=== PATIENT | male | born 1930 | race Hispanic/Latino ===

== ENCOUNTER 2017-03-18 14:52 | Inpatient (IN) | payer MEDICARE, OTHER ==
[2017-03-18] MEDS ORDERED: Sodium Chloride 0.9% 1,000 ML IV STA ×4 (15:15→18:54)
[2017-03-18 15:40] LABS: VENOUS BLOOD GAS BASE EXCESS 0.1 mmol/L (0.0-2.0); VENOUS BLOOD GAS PCO2 34 mmHg (40-60); VENOUS BLOOD PH 7.45 (7.32-7.43)
[2017-03-18 15:52] LABS: BASO % 0.1 % (0.0-2.0); HEMATOCRIT 38.9 % (35.0-51.0); LYMPH # 0.2 K/uL (1.0-4.3); LYMPH % 1.6 % (20.0-40.0); MEAN CELL VOLUME 86.8 fl (80.0-94.0); MEAN CORPUSCULAR HEMOGLOBIN 28.7 pg (27.0-31.0); MEAN CORPUSCULAR HGB CONC 33.1 g/dL (33.0-37.0); MEAN PLATELET VOLUME 8.8 fl (7.2-11.7); MONO # 0.2 K/uL (0.0-0.8); NEUT # 11.3 K/uL (1.8-7.0); NEUT % 96.3 % (50.0-75.0); PLATELET COUNT 174 K/uL (130-400); RED CELL DISTRIBUTION WIDTH 14.3 % (11.5-14.5); WHITE BLOOD COUNT 11.7 K/uL (4.8-10.8)
--- NOTE | 2017-03-18 16:01 | ED PDOC ---
HPI: Fever Fever Onset Was: 03/18/17 (Upon arrival) The Fever Was Measured: Tympanic Additional Comments: Solis is an 87 y/o male who presents to the ED complaining of feeling shaky for the past 4 days. Reports he took 2 tabs of Advil, and felt better. Denies any associated headache, sore throat, fever, cough, vomiting, diarrhea, abdominal pain, or urinary symptoms. Upon arrival, patient was found to be febrile. PMD: Unknown Past Medical History Reviewed: Historical Data, Nursing Documentation, Vital Signs Vital Signs: Last Vital Signs Temp 98.7 F 03/18/17 17:00 Pulse 103 H 03/18/17 17:00 Resp 22 03/18/17 17:00 BP 114/58 L 03/18/17 17:00 Pulse Ox 96 03/18/17 18:29 - Medical History PMH: No Chronic Diseases - Surgical History Surgical History: Cholecystectomy - Family History Family History: States: Unknown Family Hx - Home Medications Home Medications: Ambulatory Orders Medication Instructions Recorded Acetaminophen [Tylenol 325mg tab] 650 mg PO Q6 PRN tab 03/24/17 Carbamide Peroxide [Debrox Ear 5 drop AD BID bottle 03/24/17 Drops] Enoxaparin [Lovenox] 40 mg SQ DAILY #7 syr 03/24/17 Lactobacillus Acidophilus [Bacid 1 cap PO BID cap 03/24/17 Acidophilus] Pantoprazole [Protonix EC Tab] 40 mg PO DAILY ect 03/24/17 Tamsulosin [Flomax] 0.4 mg PO DAILY cap 03/24/17 cefTRIAXone 1 gm [Rocephin 1 gram 1 gm IVPB DAILY #10 bag 03/24/17 IVPB] - Allergies Allergies/Adverse Reactions: Allergies Allergy/AdvReac Type Severity Reaction Status Date / Time No Known Allergies Allergy Verified 03/24/17 17:40 Review of Systems ROS Statement: Except As Marked, All Systems Reviewed And Found Negative Constitutional: Positive for: Fever, Other (Shakiness) ENT: Negative for: Throat Pain Respiratory: Negative for: Cough, Shortness of Breath Gastrointestinal: Negative for: Nausea, Vomiting, Abdominal Pain, Diarrhea Genitourinary Male: Negative for: Dysuria, Frequency, Incontinence Neurological: Negative for: Headache Physical Exam - Reviewed Nursing Documentation Reviewed: Yes Vital Signs Reviewed: Yes - Physical Exam Appears: Positive for: Non-toxic, No Acute Distress Head Exam: Positive for: ATRAUMATIC, NORMAL INSPECTION, NORMOCEPHALIC Skin: Positive for: Normal Color, Warm, Dry. Negative for: Rash Eye Exam: Positive for: EOMI, Normal appearance, PERRL Neck: Positive for: Normal, Supple Cardiovascular/Chest: Positive for: Tachycardia. Negative for: Murmur Respiratory: Positive for: Normal Breath Sounds. Negative for: Accessory Muscle Use, Respiratory Distress Gastrointestinal/Abdominal: Positive for: Normal Exam, Soft. Negative for: Tenderness, Distended Back: Positive for: Normal Inspection. Negative for: Vertebral Tenderness Extremity: Positive for: Normal ROM, Capillary Refill (< 2 sec). Negative for: Pedal Edema, Deformity Neurologic/Psych: Positive for: Alert, Oriented (x3). Negative for: Motor/ Sensory Deficits - Laboratory Results Result Diagrams: 03/24/17 09:57 03/24/17 09:57 - ECG O2 Sat by Pulse Oximetry: 96 (RA) Pulse Ox Interpretation: Normal Medical Decision Making Medical Decision Making: Time: 15:15 Initial Impression: Fever, septic workup Initial Plan: --CMP --CBC w/ differential --Urine dipstick --Urine culture --Urinalysis --Blood culture --Influenza A B serology --VBG shock panel --EKG --NS IV 1000 ml at 1000 mls/hr --Tylenol 650 mg PO given --Pending Chest X-Ray TIME: 16:19 CHEST X-RAY: FINDINGS: LUNGS: No active pulmonary disease. PLEURA: No significant pleural effusion identified, no pneumothorax apparent. CARDIOVASCULAR: No radiographic findings to suggest acute or significant cardiovascular disease. OSSEOUS STRUCTURES: No significant abnormalities. VISUALIZED UPPER ABDOMEN: Normal. OTHER FINDINGS: None. IMPRESSION: No active disease. --Labs reviewed, noted elevated BUN and creatinine. Low carbon dioxide. Normal sodium and potassium. Negative influenza serology. Time: 17:35 --NS IV 1000 ml at 1000 mls/hr Time: 18:25 --Spoke to Dr. Paez, recommends giving patient Rocephin. Ordered 1 gm IV. --Patient will be admitted inpatient to Telemetry for severe sepsis, under the care of Dr. Paez. Scribe Attestation: Documented by Aleshia Ricketts, acting as a scribe for Anay Jensen MD Provider Scribe Attestation: All medical record entries made by the Scribe were at my direction and personally dictated by me. I have reviewed the chart and agree that the record accurately reflects my personal performance of the history, physical exam, medical decision making, and the department course for this patient. I have also personally directed, reviewed, and agree with the discharge instructions and disposition. Disposition - Clinical Impression Clinical Impression: Severe sepsis - Patient ED Disposition Is Patient to be Admitted: Yes - Disposition Disposition Time: 18:32 Condition: GUARDED - Pt Status Changed To: Hospital Disposition Of: Inpatient - Admit Certification Admit to Inpatient:: After my assessment, the patient will require hospitalization for at least two midnights. This is because of the severity of symptoms shown, intensity of services needed, and/or the medical risk in this patient being treated as an outpatient. - POA Present On Arrival: None
[2017-03-18 16:05] LABS: ALB/GLOB RATIO 1.1 (1.0-2.1); CALCIUM 9.1 mg/dL (8.4-10.2); POTASSIUM 4.4 MMOL/L (3.6-5.0); TOTAL PROTEIN 7.3 G/DL (6.3-8.2)
--- NOTE | 2017-03-18 16:21 | RAD ---
HISTORY: Fever COMPARISON: No prior. FINDINGS: LUNGS: No active pulmonary disease. PLEURA: No significant pleural effusion identified, no pneumothorax apparent. CARDIOVASCULAR: No radiographic findings to suggest acute or significant cardiovascular disease. OSSEOUS STRUCTURES: No significant abnormalities. VISUALIZED UPPER ABDOMEN: Normal. OTHER FINDINGS: None. IMPRESSION: No active disease.
[2017-03-18] MEDS ORDERED: Sodium Chloride 0.9% 500 ML IV STA (16:51)
[2017-03-18 18:11] LABS: RBC URINE 8 /hpf (0-3); URINE BILIRUBIN NEGATIVE (NEGATIVE); URINE BLOOD SMALL (NEGATIVE); URINE COLOR YELLOW (YELLOW); URINE GLUCOSE (UA) 50 mg/dL (Normal); URINE KETONE NEGATIVE (NEGATIVE); URINE LEUKOCYTE ESTERASE NEG Leu/uL (Negative); URINE PROTEIN >=500 mg/dL (NEGATIVE); URINE UROBILINOGEN 0.2-1.0 mg/dL (0.2-1.0)
[2017-03-18 18:14] LABS: WBC URINE 3 /hpf (0-5)
[2017-03-18 18:54] LABS: NEUTROPHIL 86 % (42-75); TOTAL CELLS COUNTED 100
[2017-03-18] MEDS ORDERED: cefTRIAXone (Rocephin) 1 gm Inj ONE (19:27)
[2017-03-18 20:16] LABS: PARTIAL THROMBOPLASTIN TIME 29.2 Seconds (25.6-37.1)
[2017-03-19] MEDS: Sodium Chloride 0.9% 1,000 ML IV SCH ×2 (01:02→13:42)
[2017-03-19 10:20] LABS: CALCIUM 8.6 mg/dL (8.4-10.2); POTASSIUM 4.3 MMOL/L (3.6-5.0)
[2017-03-19] MEDS ORDERED: Iohexol 240 (50 ml) PO ONE (11:45)
--- NOTE | 2017-03-19 12:14 | CP.PCM.CON ---
History of Present Illness - History of Present Illness History of Present Illness: This patient who is 8-9 years of age I was called to see him for abnormal kidney function. 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 And he required to have upper and lower endoscopy most likely. 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 absent: Abdominal Pain, Coffee Ground Emesis, Diarrhea, Vomiting - Genitourinary Genitourinary: Nocturia. absent: Dysuria - Integumentary Integumentary: As Per HPI - Neurological Neurological: As Per HPI - Psychiatric Psychiatric: As Per HPI Past Patient History - Past Medical History & Family History Past Medical History?: No - Past Social History Smoking Status: Never Smoked - CARDIAC Hx Hypertension: Yes - MUSCULOSKELETAL/RHEUMATOLOGICAL Hx Falls: No - PSYCHIATRIC Hx Substance Use: No - SURGICAL HISTORY Hx Cholecystectomy: Yes - ANESTHESIA Hx Anesthesia: Yes Hx Anesthesia Reactions: No Hx Malignant Hyperthermia: No Has any member of the family had a problem w/ anesthesia?: No Meds Allergies/Adverse Reactions: Allergies Allergy/AdvReac Type Severity Reaction Status Date / Time No Known Allergies Allergy Verified 03/18/17 14:53 - Medications Medications: Current Medications Acetaminophen (Tylenol 325mg Tab) 650 mg PO Q6 PRN PRN Reason: Pain, moderate (4-7) Sodium Chloride (Sodium Chloride 0.9%) 1,000 mls @ 80 mls/hr IV .[id number] [facility] Stop: 03/20/17 00:20 Last Admin: 03/19/17 01:02 Dose: 80 mls/hr Ceftriaxone Sodium 1 gm/ (Sodium Chloride) 100 mls @ 100 mls/hr IVPB DAILY KATHIA Physical Exam - Constitutional Appears: No Acute Distress - ENT Exam ENT Exam: Mucous Membranes Dry - Neck Exam Neck exam: Negative for: Lymphadenopathy - Respiratory Exam Respiratory Exam: NORMAL BREATHING PATTERN. absent: Chest Wall Tenderness - Cardiovascular Exam Cardiovascular Exam: REGULAR RHYTHM. absent: JVD, Rubs - GI/Abdominal Exam GI & Abdominal Exam: Normal Bowel Sounds - Extremities Exam Extremities exam: Negative for: calf tenderness - Back Exam Back exam: absent: CVA tenderness (L), CVA tenderness (R) - Neurological Exam Neurological exam: Alert Results - Vital Signs Recent Vital Signs: Last Vital Signs Temp 97.6 F 03/19/17 08:00 Pulse 72 03/19/17 08:00 Resp 20 03/19/17 08:00 BP 95/55 L 03/19/17 08:00 Pulse Ox 98 03/19/17 08:00 - Labs Result Diagrams: 03/18/17 15:30 03/19/17 10:00 Labs: Laboratory Results - last 24 hr 03/18/17 03/18/17 03/18/17 15:26 15:28 15:30 WBC 11.7 H RBC 4.48 Hgb 12.9 Hct 38.9 MCV 86.8 MCH 28.7 MCHC 33.1 RDW 14.3 Plt Count 174 MPV 8.8 Neut % (Auto) 96.3 H Lymph % (Auto) 1.6 L [place] % (Auto) 2.0 Eos % (Auto) 0.0 Baso % (Auto) 0.1 Neut # 11.3 H Lymph # 0.2 L [place] # 0.2 Eos # 0.0 Baso # 0.0 Neutrophils % (Manual) 86 H Band Neutrophils % 8 H Lymphocytes % (Manual) 3 L Monocytes % (Manual) 3 Toxic Granulation Present Platelet Estimate Normal Hypochromasia (manual) Slight Anisocytosis (manual) Slight PT INR APTT pO2 41 VBG pH 7.45 H VBG pCO2 34 L VBG HCO3 24.6 VBG Total CO2 24.6 VBG O2 Sat (Calc) 85.9 H VBG Base Excess 0.1 VBG Potassium 4.4 Sodium 133.0 Chloride 102.0 Glucose 170 H Lactate 2.0 FiO2 21.0 Potassium Carbon Dioxide Anion Gap BUN Creatinine Est GFR ( Amer) Est GFR (Non-Af Amer) POC Glucose (mg/dL) 168 H Random Glucose Lactic Acid Calcium Total Bilirubin AST ALT Alkaline Phosphatase Total Protein Albumin Globulin Albumin/Globulin Ratio Venous Blood Potassium 4.4 Urine Color Urine Clarity Urine pH Ur Specific [place] Urine Protein Urine Glucose (UA) Urine Ketones Urine Blood Urine Nitrate Urine Bilirubin Urine Urobilinogen Ur Leukocyte Esterase Urine RBC (Auto) Urine Microscopic WBC Ur Squamous Epith Cells Influenza Typ A,B (EIA) 03/18/17 03/18/17 03/18/17 15:30 16:13 17:26 WBC RBC Hgb Hct MCV MCH MCHC RDW Plt Count MPV Neut % (Auto) Lymph % (Auto) [place] % (Auto) Eos % (Auto) Baso % (Auto) Neut # Lymph # [place] # Eos # Baso # Neutrophils % (Manual) Band Neutrophils % Lymphocytes % (Manual) Monocytes % (Manual) Toxic Granulation Platelet Estimate Hypochromasia (manual) Anisocytosis (manual) PT INR APTT pO2 VBG pH VBG pCO2 VBG HCO3 VBG Total CO2 VBG O2 Sat (Calc) VBG Base Excess VBG Potassium Sodium 140 Chloride 104 Glucose Lactate FiO2 Potassium 4.4 Carbon Dioxide 21 L Anion Gap 19 BUN 34 H Creatinine 1.9 H Est GFR ( Amer) 41 Est GFR (Non-Af Amer) 34 POC Glucose (mg/dL) Random Glucose 153 H Lactic Acid Calcium 9.1 Total Bilirubin 1.0 AST 64 H ALT 69 Alkaline Phosphatase 108 Total Protein 7.3 Albumin 3.9 Globulin 3.4 Albumin/Globulin Ratio 1.1 Venous Blood Potassium Urine Color Yellow Urine Clarity Slighty-cloudy Urine pH 6.0 Ur Specific [place] 1.020 Urine Protein >=500 Urine Glucose (UA) 50 Urine Ketones Negative Urine Blood Small Urine Nitrate Negative Urine Bilirubin Negative Urine Urobilinogen 0.2-1.0 Ur Leukocyte Esterase Neg Urine RBC (Auto) 8 H Urine Microscopic WBC 3 Ur Squamous Epith Cells < 1 Influenza Typ A,B (EIA) Negative for flu a/b 03/18/17 03/18/17 03/19/17 19:55 21:00 10:00 WBC RBC Hgb Hct MCV MCH MCHC RDW Plt Count MPV Neut % (Auto) Lymph % (Auto) [place] % (Auto) Eos % (Auto) Baso % (Auto) Neut # Lymph # [place] # Eos # Baso # Neutrophils % (Manual) Band Neutrophils % Lymphocytes % (Manual) Monocytes % (Manual) Toxic Granulation Platelet Estimate Hypochromasia (manual) Anisocytosis (manual) PT 13.7 H INR 1.3 H APTT 29.2 pO2 VBG pH VBG pCO2 VBG HCO3 VBG Total CO2 VBG O2 Sat (Calc) VBG Base Excess VBG Potassium Sodium 142 Chloride 107 Glucose Lactate FiO2 Potassium 4.3 Carbon Dioxide 22 Anion Gap 16 BUN 37 H Creatinine 1.9 H Est GFR ( Amer) 41 Est GFR (Non-Af Amer) 34 POC Glucose (mg/dL) Random Glucose 140 H Lactic Acid 1.0 Calcium 8.6 Total Bilirubin AST ALT Alkaline Phosphatase Total Protein Albumin Globulin Albumin/Globulin Ratio Venous Blood Potassium Urine Color Urine Clarity Urine pH Ur Specific [place] Urine Protein Urine Glucose (UA) Urine Ketones Urine Blood Urine Nitrate Urine Bilirubin Urine Urobilinogen Ur Leukocyte Esterase Urine RBC (Auto) Urine Microscopic WBC Ur Squamous Epith Cells Influenza Typ A,B (EIA) Assessment & Plan (1) Acute kidney injury Assessment and Plan: Patient most likely have acute kidney injury from sepsis. Patient has positive blood culture gram-negative bacilli the source of which is not known at this point. Patient receiving the Rocephin at this point With such a long history and long treatment of previous pseudomembranous colitis therefore I discussed with the nurse practitioner to order abdomen and pelvis CT scan without IV contrast and to discuss with ID for father antibiotics and management regarding the fever and chills Stat Spot urine for sodium osmolality and creatinine Hydration 80 mL/h at least Status: Acute
--- NOTE | 2017-03-19 13:31 | CP.PCM.CON ---
History of Present Illness - History of Present Illness History of Present Illness: 87 y/o male who presents to the ED complaining of feeling shaky for the past 4 days. Reports he took 2 tabs of Advil, and felt better. Denies any associated headache, sore throat, fever, cough, vomiting, diarrhea, or urinary symptoms. Upon arrival, patient was found to be febrile. 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 - Surgical History Surgical History: Cholecystectomy Review of Systems - Constitutional Constitutional: Anorexia, Chills, Fever, Malaise - EENT Eyes: absent: As Per HPI, Blind Spots, Blurred Vision, Change in Vision, Decreased Night Vision, Diplopia, Discharge, Dry Eye, Exophthalmos, Floaters, Irritation, Itchy Eyes, Loss of Peripheral Vision, Pain, Photophobia, Requires Corrective Lenses, Sees Flashes, Spots in Vision, Tunnel Vision, Other Visual Disturbances, Loss of Vision, Other Ears: absent: As Per HPI, Decreased Hearing, Ear Discharge, Ear Pain, Tinnitus, Abnormal Hearing, Disequilibrium, Dizziness, Other Nose/Mouth/Throat: absent: As Per HPI, Epistaxis, Nasal Congestion, Nasal Discharge, Nasal Obstruction, Nasal Trauma, Nose Pain, Post Nasal Drip, Sinus Pain, Sinus Pressure, Bleeding Gums, Change in Voice, Dental Pain, Dry Mouth, Dysphagia, Halitosis, Hoarsness, Lip Swelling, Mouth Lesions, Mouth Pain, Odynophagia, Sore Throat, Throat Swelling, Tongue Swelling, Facial Pain, Neck Pain, Neck Mass, Other - Cardiovascular Cardiovascular: absent: As Per HPI, Acrocyanosis, Chest Pain, Chest Pain at Rest , Chest Pain with Activity, Claudication, Diaphoresis, Dyspnea, Dyspnea on Exertion, Edema, Irregular Heart Rhythm, Pain Radiating to Arm/Neck/Jaw, Leg Edema, Leg Ulcers, Lightheadedness, Orthopnea, Palpitations, Paroxysmal Nocturnal Dyspnea, Pedal Edema, Radiating Pain, Rapid Heart Rate, Slow Heart Rate, Syncope, Other - Respiratory Respiratory: absent: As Per HPI, Cough, Dyspnea, Hemoptysis, Dyspnea on Exertion , Wheezing, Snoring, Stridor, Pain on Inspiration, Chest Congestion, Excessive Mucous Production, Change in Mucous Color, Pain with Coughing, Other - Gastrointestinal Gastrointestinal: As Per HPI - Genitourinary Genitourinary: absent: As Per HPI, Change in Urinary Stream, Difficulty Urinating, Dysuria, Flank Pain, Hematuria, Pyuria, Nocturia, Urinary Incontinence, Urinary Frequency, Urinary Hesitance, Urinary Urgency, Voiding Freq/Small Amts, Freq UTI, Hx Renal/Bladder Calculi, Hx /Renal Surgery, Bladder Distension, Other - Musculoskeletal Musculoskeletal: absent: As Per HPI, Abnormal Gait, Arthralgias, Atrophy, Back Pain, Deformity, Joint Swelling, Limited Range of Motion, Loss of Height, Muscle Cramps, Muscle Weakness, Myalgias, Neck Pain, Numbness, Radiating Pain into Limb, Stiffness, Tingling, Other - Integumentary Integumentary: absent: As Per HPI, Acne, Alopecia, Bleeding Lesions, Change in Hair, Change in Nails, Change in Pigmentation, Changing Lesions, Dry Skin, Erythema, Furuncle, Hirsutism, Lesions, New Lesions, Non-Healing Lesions, Photosensitivity, Pruritus, Rash, Skin Pain, Skin Ulcer, Sores, Striae, Swelling , Unusual Bruising, Wounds, Jaundice, Other - Neurological Neurological: absent: As Per HPI, Abnormal Gait, Abnormal Hearing, Abnormal Movements, Abnormal Speech, Behavioral Changes, Burning Sensations, Confusion, Convulsions, Disequilibrium, Dizziness, Numbness, Focal Weakness, Frequent Falls , Headaches, Lack of Coordination, Loss of Vision, Memory Loss, Paresthesias, Radicular Pain, Restless Legs, Sensory Deficit, Syncope, Tingling, Tremor, Vertigo, Weakness, Other Visual Disturbances, Other - Psychiatric Psychiatric: absent: As Per HPI, Abnormal Sleep Pattern, Anhedonia, Anxiety, Auditory Hallucinations, Behavioral Changes, Change in Appetite, Change in Libido, Confusion, Depression, Difficulty Concentrating, Hallucinations, Homicidal Ideation, Hopelessness, Irritability, Memory Loss, Mood Swings, Panic Attacks, Paranoia, Suicidal Ideation, Visual Hallucinations, Tactile Hallucinations, Other - Endocrine Endocrine: absent: As Per HPI, Change in Body Appearance, Change in Libido, Cold Intolorance, Deepening of Voice, Excessive Sweating, Fatigue, Flushing, Heat Intolorance, Increase in Ring/Shoe/Hat Size, Palpitations, Polydipsia, Polyphagia, Polyuria, Other - Hematologic/Lymphatic Hematologic: absent: As Per HPI, Easy Bleeding, Easy Bruising, Lymphadenopathy, Other Past Patient History - Past Medical History & Family History Past Medical History?: No - Past Social History Smoking Status: Never Smoked - CARDIAC Hx Hypertension: Yes - MUSCULOSKELETAL/RHEUMATOLOGICAL Hx Falls: No - PSYCHIATRIC Hx Substance Use: No - SURGICAL HISTORY Hx Cholecystectomy: Yes - ANESTHESIA Hx Anesthesia: Yes Hx Anesthesia Reactions: No Hx Malignant Hyperthermia: No Has any member of the family had a problem w/ anesthesia?: No Meds Allergies/Adverse Reactions: Allergies Allergy/AdvReac Type Severity Reaction Status Date / Time No Known Allergies Allergy Verified 03/18/17 14:53 - Medications Medications: Current Medications Acetaminophen (Tylenol 325mg Tab) 650 mg PO Q6 PRN PRN Reason: Pain, moderate (4-7) Sodium Chloride (Sodium Chloride 0.9%) 1,000 mls @ 80 mls/hr IV .[id number] [facility] Stop: 03/20/17 00:20 Last Admin: 03/19/17 01:02 Dose: 80 mls/hr Ceftriaxone Sodium 1 gm/ (Sodium Chloride) 100 mls @ 100 mls/hr IVPB DAILY KATHIA Physical Exam - Constitutional Appears: Non-toxic, Chronically Ill - Head Exam Head Exam: ATRAUMATIC, NORMAL INSPECTION, NORMOCEPHALIC - Eye Exam Eye Exam: EOMI, PERRL. absent: Scleral icterus - ENT Exam ENT Exam: Mucous Membranes Dry - Neck Exam Neck exam: Negative for: Lymphadenopathy - Respiratory Exam Respiratory Exam: Decreased Breath Sounds, Clear to Auscultation Bilateral - Cardiovascular Exam Cardiovascular Exam: REGULAR RHYTHM, +S1, +S2 - GI/Abdominal Exam GI & Abdominal Exam: Diminished Bowel Sounds, Soft. absent: Tenderness - Rectal Exam Rectal Exam: Deferred - Exam Exam: NORMAL INSPECTION - Extremities Exam Extremities exam: Positive for: pedal pulses present. Negative for: calf tenderness, pedal edema, tenderness - Back Exam Back exam: absent: CVA tenderness (L), CVA tenderness (R), paraspinal tenderness - Neurological Exam Neurological exam: Alert, CN II-XII Intact, Oriented x3, Reflexes Normal - Psychiatric Exam Psychiatric exam: Normal Mood - Skin Skin Exam: Dry, Intact Results - Vital Signs Recent Vital Signs: Last Vital Signs Temp 98 F 03/19/17 12:00 Pulse 85 03/19/17 12:00 Resp 20 03/19/17 12:00 BP 138/70 03/19/17 12:00 Pulse Ox 98 03/19/17 12:00 - Labs Result Diagrams: 03/18/17 15:30 03/19/17 10:00 Labs: Laboratory Results - last 24 hr 03/18/17 03/18/17 03/18/17 15:26 15:28 15:30 WBC 11.7 H RBC 4.48 Hgb 12.9 Hct 38.9 MCV 86.8 MCH 28.7 MCHC 33.1 RDW 14.3 Plt Count 174 MPV 8.8 Neut % (Auto) 96.3 H Lymph % (Auto) 1.6 L [place] % (Auto) 2.0 Eos % (Auto) 0.0 Baso % (Auto) 0.1 Neut # 11.3 H Lymph # 0.2 L [place] # 0.2 Eos # 0.0 Baso # 0.0 Neutrophils % (Manual) 86 H Band Neutrophils % 8 H Lymphocytes % (Manual) 3 L Monocytes % (Manual) 3 Toxic Granulation Present Platelet Estimate Normal Hypochromasia (manual) Slight Anisocytosis (manual) Slight PT INR APTT pO2 41 VBG pH 7.45 H VBG pCO2 34 L VBG HCO3 24.6 VBG Total CO2 24.6 VBG O2 Sat (Calc) 85.9 H VBG Base Excess 0.1 VBG Potassium 4.4 Sodium 133.0 Chloride 102.0 Glucose 170 H Lactate 2.0 FiO2 21.0 Potassium Carbon Dioxide Anion Gap BUN Creatinine Est GFR ( Amer) Est GFR (Non-Af Amer) POC Glucose (mg/dL) 168 H Random Glucose Lactic Acid Calcium Total Bilirubin AST ALT Alkaline Phosphatase Total Protein Albumin Globulin Albumin/Globulin Ratio Venous Blood Potassium 4.4 Urine Color Urine Clarity Urine pH Ur Specific [place] Urine Protein Urine Glucose (UA) Urine Ketones Urine Blood Urine Nitrate Urine Bilirubin Urine Urobilinogen Ur Leukocyte Esterase Urine RBC (Auto) Urine Microscopic WBC Ur Squamous Epith Cells Influenza Typ A,B (EIA) 03/18/17 03/18/17 03/18/17 15:30 16:13 17:26 WBC RBC Hgb Hct MCV MCH MCHC RDW Plt Count MPV Neut % (Auto) Lymph % (Auto) [place] % (Auto) Eos % (Auto) Baso % (Auto) Neut # Lymph # [place] # Eos # Baso # Neutrophils % (Manual) Band Neutrophils % Lymphocytes % (Manual) Monocytes % (Manual) Toxic Granulation Platelet Estimate Hypochromasia (manual) Anisocytosis (manual) PT INR APTT pO2 VBG pH VBG pCO2 VBG HCO3 VBG Total CO2 VBG O2 Sat (Calc) VBG Base Excess VBG Potassium Sodium 140 Chloride 104 Glucose Lactate FiO2 Potassium 4.4 Carbon Dioxide 21 L Anion Gap 19 BUN 34 H Creatinine 1.9 H Est GFR ( Amer) 41 Est GFR (Non-Af Amer) 34 POC Glucose (mg/dL) Random Glucose 153 H Lactic Acid Calcium 9.1 Total Bilirubin 1.0 AST 64 H ALT 69 Alkaline Phosphatase 108 Total Protein 7.3 Albumin 3.9 Globulin 3.4 Albumin/Globulin Ratio 1.1 Venous Blood Potassium Urine Color Yellow Urine Clarity Slighty-cloudy Urine pH 6.0 Ur Specific [place] 1.020 Urine Protein >=500 Urine Glucose (UA) 50 Urine Ketones Negative Urine Blood Small Urine Nitrate Negative Urine Bilirubin Negative Urine Urobilinogen 0.2-1.0 Ur Leukocyte Esterase Neg Urine RBC (Auto) 8 H Urine Microscopic WBC 3 Ur Squamous Epith Cells < 1 Influenza Typ A,B (EIA) Negative for flu a/b 03/18/17 03/18/17 03/19/17 19:55 21:00 10:00 WBC RBC Hgb Hct MCV MCH MCHC RDW Plt Count MPV Neut % (Auto) Lymph % (Auto) [place] % (Auto) Eos % (Auto) Baso % (Auto) Neut # Lymph # [place] # Eos # Baso # Neutrophils % (Manual) Band Neutrophils % Lymphocytes % (Manual) Monocytes % (Manual) Toxic Granulation Platelet Estimate Hypochromasia (manual) Anisocytosis (manual) PT 13.7 H INR 1.3 H APTT 29.2 pO2 VBG pH VBG pCO2 VBG HCO3 VBG Total CO2 VBG O2 Sat (Calc) VBG Base Excess VBG Potassium Sodium 142 Chloride 107 Glucose Lactate FiO2 Potassium 4.3 Carbon Dioxide 22 Anion Gap 16 BUN 37 H Creatinine 1.9 H Est GFR ( Amer) 41 Est GFR (Non-Af Amer) 34 POC Glucose (mg/dL) Random Glucose 140 H Lactic Acid 1.0 Calcium 8.6 Total Bilirubin AST ALT Alkaline Phosphatase Total Protein Albumin Globulin Albumin/Globulin Ratio Venous Blood Potassium Urine Color Urine Clarity Urine pH Ur Specific [place] Urine Protein Urine Glucose (UA) Urine Ketones Urine Blood Urine Nitrate Urine Bilirubin Urine Urobilinogen Ur Leukocyte Esterase Urine RBC (Auto) Urine Microscopic WBC Ur Squamous Epith Cells Influenza Typ A,B (EIA) Assessment & Plan (1) Bacteremia due to Gram-negative bacteria Status: Acute (2) Bacteremia due to Gram-negative bacteria Status: Acute - Assessment and Plan (Free Text) Assessment: 87 yo male with bacteremia has microscopic hematuria but neg WBC/Nitrites in urine and no definite symptoms Has vqague RUQ tend/ pain awaiting CT abd/ Pelvis r/o diverticular abscess/ occult GI malignancy cont IV antibiotics would check for c diff colonization and add empiric flagyl if colonized
--- NOTE | 2017-03-19 17:05 | CT ---
PROCEDURE: CT Abdomen and Pelvis without intravenous contrast HISTORY: sepsis; fever COMPARISON: None. TECHNIQUE: Oral contrast only. Radiation dose: Total exam DLP = 880.41 mGy-cm. This CT exam was performed using one or more of the following dose reduction techniques: Automated exposure control, adjustment of the mA and/or kV according to patient size, and/or use of iterative reconstruction technique. FINDINGS: LOWER THORAX: Trace bilateral pleural effusions. Bronchial wall thickening and likely mild lower airway disease, bronchitis. LIVER: Focal mass periphery of the right hepatic lobe measuring 3.3 x 3.0 cm. The finding is indeterminate. There are additional ill-defined masses liver, right hepatic lobe which are more diffuse and infiltrative. Follow-up recommended either with multiphasic contrast enhanced CT or ultrasound. GALLBLADDER AND BILE DUCTS: Status post cholecystectomy. No abnormality is seen in the gallbladder fossa. Caps caps PANCREAS: Unremarkable. No gross lesion or ductal dilatation. SPLEEN: Unremarkable. ADRENALS: Unremarkable. No mass. KIDNEYS AND URETERS: VASCULATURE: Unremarkable. No aortic aneurysm. BOWEL: Marked thickening of the wall of the duodenum, a likely in representing duodenitis. Adjacent duodenal diverticulum. Adjacent focal fluid suggest an acute inflammatory process. Constipation/fecal impaction. APPENDIX: Unremarkable. Normal appendix. PERITONEUM: Trace perihepatic ascites. The etiology of this is uncertain. LYMPH NODES: Unremarkable. No enlarged lymph nodes. BLADDER: Diffuse bladder wall thickening without focal mass, findings consistent with cystitis. REPRODUCTIVE: Markedly enlarged prostate 5.6 by 5.3 cm BONES: No acute fracture. OTHER FINDINGS: Well-circumscribed solid mass adjacent to the pubic symphysis to the right of the midline measuring 1.9 x 2.6 cm with mean Hounsfield unit values 74. No focal bony destruction. IMPRESSION: 1. Findings suggestive of acute duodenitis. 2. Diffuse bladder wall thickening likely reflective cystitis without focal abnormality. 3. Enlarged prostate, of the bladder wall thickening may in fact be bladder outflow obstruction. 4. At least 1, possibly several hepatic masses requiring further evaluation. Multi Phasic CT scan is advised, alternatively hepatic ultrasound recommended
--- NOTE | 2017-03-20 02:26 | CARD ---
APPROVED REPORT EKG Measurement Heart [id number] <Conclusion> Normal sinus rhythm Normal ECG
--- NOTE | 2017-03-20 04:19 | HP ---
HISTORY OF PRESENT ILLNESS: This is an 87 years old [place] male with no significant past medical history except for GERD/gastritis on Nexium, presented to emergency room after 1-day history of shivering and generalized weakness and generalized body ache. The patient was evaluated in the emergency room where he was found to have temperature of 103 and white blood cell count of 11.7. The patient also was found to have BUN of 34 and creatinine 1.9. Subsequently, the patient was admitted for rule out sepsis. The patient denied to have any similar illness before, denied to have any respiratory, cardiovascular, or GI symptoms. REVIEW OF SYSTEMS: Other review of systems is negative. ALLERGIES: No known allergies. MEDICATIONS: Nexium 40 mg daily. PAST MEDICAL HISTORY: Gastritis/GERD. SOCIAL HISTORY: No history of smoking, ETOH or substance abuse. FAMILY HISTORY: Not contributory. PHYSICAL EXAMINATION: VITAL SIGNS: Blood pressure 114/58, temperature 98.7, respiratory rate 20 and pulse 100. HEENT: Pupils equal and reactive to light. Normal-appearing mucosa of the conjunctivae, oropharynx and nasal membrane mucosa. NECK: Supple. No JVD. No carotid bruit. No lymph node. No thyromegaly. CHEST AND LUNGS: Bilateral symmetrical expansion. Good air exchange. No rales. No rhonchi. CARDIOVASCULAR SYSTEM: PMI not localized. S1, S2. No additional sounds. ABDOMEN: Normoactive bowel sounds. No tenderness. No organomegaly. No masses. EXTREMITIES: No cyanosis. No clubbing. No edema. CENTRAL NERVOUS SYSTEM: Alert, awake and oriented x3. No neurological deficits could be appreciated. LABORATORY DATA: Blood work done on admission showed blood culture positive for gram-negative rods, organism and sensitivity to be determined. ASSESSMENT: 1. Sepsis as the patient came with tachycardia and fever and blood culture positive for gram-negative rods, currently is unknown source of the bacteremia. 2. History of gastritis/gastroesophageal reflux disease. 3. Elevation of BUN and creatinine, likely to be chronic as the patient stated that his primary care physician told him that he should not get any imaging study with contrast due to problem with the kidney. PLAN: We will do ID consult as well as Nephrology consult. Continue IV fluid. Continue Rocephin. [facility] will [facility] echocardiogram. [facility] MD Philippe [facility] # [id number]
[2017-03-20 06:15] LABS: HEMATOCRIT 34.1 % (35.0-51.0); MEAN CELL VOLUME 87.4 fl (80.0-94.0); MEAN CORPUSCULAR HEMOGLOBIN 28.6 pg (27.0-31.0); MEAN CORPUSCULAR HGB CONC 32.7 g/dL (33.0-37.0); RED CELL DISTRIBUTION WIDTH 14.9 % (11.5-14.5); WHITE BLOOD COUNT 8.5 K/uL (4.8-10.8)
[2017-03-20 06:34] LABS: CALCIUM 8.3 mg/dL (8.4-10.2); POTASSIUM 3.8 MMOL/L (3.6-5.0)
--- NOTE | 2017-03-20 08:47 | CP.PCM.PN ---
Subjective - Date & Time of Evaluation Date of Evaluation: 03/20/17 Time of Evaluation: 08:43 - Subjective Subjective: Patient feeling much better No nausea no vomiting Patient is awake Objective - Vital Signs/Intake and Output Vital Signs (last 24 hours): Temp Pulse Resp BP Pulse Ox 98.4 F 71 14 103/61 98 03/20/17 08:00 03/20/17 08:00 03/20/17 08:00 03/20/17 08:00 03/20/17 08:00 - Medications Medications: Current Medications Acetaminophen (Tylenol 325mg Tab) 650 mg PO Q6 PRN PRN Reason: Pain, moderate (4-7) Ceftriaxone Sodium 1 gm/ (Sodium Chloride) 100 mls @ 100 mls/hr IVPB DAILY [facility] Last Admin: 03/19/17 13:39 Dose: 100 mls/hr - Labs Labs: 03/20/17 06:10 03/20/17 06:10 PT 13.7 Seconds (9.8-13.1) H 03/18/17 19:55 INR 1.3 (0.9-1.2) H 03/18/17 19:55 APTT 29.2 Seconds (25.6-37.1) 03/18/17 19:55 - Constitutional Appears: No Acute Distress - ENT Exam ENT Exam: Mucous Membranes Moist - Neck Exam Neck Exam: absent: Lymphadenopathy - Cardiovascular Exam Cardiovascular Exam: REGULAR RHYTHM. absent: JVD, Rubs - GI/Abdominal Exam GI & Abdominal Exam: Soft, Normal Bowel Sounds - Extremities Exam Extremities Exam: absent: Calf Tenderness - Back Exam Back Exam: absent: CVA tenderness (L), CVA tenderness (R) - Neurological Exam Neurological Exam: Alert - Psychiatric Exam Psychiatric exam: Normal Affect - Skin Skin Exam: Normal Color. absent: Abrasion, Dry Assessment and Plan (1) Acute kidney injury Assessment & Plan: Acute kidney injury probably from sepsis which has been improving serum creatinine coming down and appeared to be recovering slowly. Continue gentle hydration Lab review completely CT scan of the abdomen reviewed and noted see the detailed of the report Ultrasound of the kidney pending Patient may need CT scan of the abdomen with IV contrast because of the possibility questionable mass in the liver waiting for kidney function to improve/ Status: Deleted
--- NOTE | 2017-03-20 10:29 | CARD ---
APPROVED REPORT EKG Measurement Heart [id number] [id number] <Conclusion> Sinus tachycardia Otherwise normal ECG
--- NOTE | 2017-03-20 13:15 | US ---
PROCEDURE: Ultrasound of the Kidneys HISTORY: arf; sepsis COMPARISON: None available. TECHNIQUE: Sonogram of the kidneys. FINDINGS: RIGHT KIDNEY: Measures: 9.4 cm. Normal in size, contour and echogenicity. No calculus or hydronephrosis. Upper pole simple cortical cyst, 1.0 x 1.3 x 1.3 cm. LEFT KIDNEY: Measures: 9.6 cm. Normal in size, contour and echogenicity. No calculus or hydronephrosis. 2 simple cysts. Mid left kidney, 1.1 x 1.4 x 1.6 cm and lower pole, 1.0 x 1.3 x 1.3 cm. OTHER FINDINGS: None. IMPRESSION: Bilateral small simple renal cortical cysts. Otherwise unremarkable.
[2017-03-20] MEDS: Acetylcysteine 20% Inhal Soln (4ml) PO SCH ×3 (16:57→22:19)
[2017-03-20] MEDS: Enoxaparin 30 mg Syringe SC SCH (17:00)
[2017-03-20] MEDS: Pantoprazole 40 mg EC Tab PO SCH (17:02)
[2017-03-20] MEDS: Lactobacillus Acidophilus 500 MU Cap PO SCH ×2 (17:06→17:07)
--- NOTE | 2017-03-20 17:07 | CON ---
DATE: 03/20/2017 REFERRING PHYSICIAN: Dr. Paez. REASON FOR CONSULTATION: Gastritis/duodenitis. HISTORY OF PRESENT ILLNESS: This is a very yesenia 87-year-old man who essentially comes in for fevers and chills, and abdominal discomfort and bloating, and found to have Gram-negative bacteremia and GI was consulted basically for history of duodenitis. The patient actually has no evidence of GI complaints. No heartburn or reflux. No pain is noted. No diarrhea. No nausea. No vomiting. Just current generalized malaise. Currently lying in bed comfortably, in no apparent distress. PAST MEDICAL HISTORY: As above. PAST SURGICAL HISTORY: As above. MEDICATIONS: Have been reviewed. REVIEW OF SYSTEMS: All other systems have been reviewed and negative apart from the HPI. PHYSICAL EXAMINATION GENERAL: This is a pleasant elderly-appearing male, lying in bed comfortably, in no apparent distress. VITAL SIGNS: Reviewed in the hospital, grossly unremarkable. HEENT: Head is normocephalic and atraumatic. Eyes, pupils equal, round, and reactive to light bilaterally. No conjunctival pallor or icterus. NECK: Supple. Normal range of motion. No lymphadenopathy appreciated. LUNGS: Coarse breath sounds bilaterally. HEART: S1 and S2. Regular rate and rhythm. No murmurs appreciated. ABDOMEN: Soft, nontender. Bowel sounds present. No rebound. No guarding. RECTAL: Deferred. EXTREMITIES: Pulses felt bilaterally. SKIN: Warm, dry, and intact. NEUROLOGIC: A and O x3. LABORATORY DATA: Reviewed, WBC was 11.7, now it is 8.5; hemoglobin stable at 11.2, platelet counts of 123. INR 1.3. BUN and creatinine 33 and 1.7, which is mildly improving. LFTs, AST is 64. Abdomen and pelvis CT, which was done without p.o. or IV contrast shows acute duodenitis, enlarged prostate, at least one pound with several lymphatic masses requiring further evaluation. ASSESSMENT AND PLAN: This is an 87-year-old man with sepsis and liver lesions and duodenitis. Duodenitis at this point is probably just reactive and/or just what appears to be inflammation, although in light of liver lesions could be concerning. We will need to evaluate the imaging with CT and/or MR with contrast. These liver lesions are concerning for metastases or associated process. We will get a CEA and AFP, and we will get further imaging once available. PPI twice a day. Sepsis workup in progress. Thank you for the consult. John Rasheed MD/ PhD cc: Dr. Paez. [email or web address]
--- NOTE | 2017-03-20 18:26 | US ---
HISTORY: f/u CT result of multiple liver mass COMPARISON: March 19, 2017. CT abdomen and pelvis TECHNIQUE: Sonographic evaluation of the right upper quadrant of the abdomen. FINDINGS: LIVER: Measures 14.7 cm in length. Increased echogenicity of the liver parenchyma. Hepato pedal blood flow. Ill-defined masses in the right hepatic lobe 3.2 x 3.1 x 3.6 cm and 3.4 x 3.5 x 3.9 cm. These are indeterminate, appear more diffuse and infiltrative and benign masses such as hemangiomas. GALLBLADDER: Status post cholecystectomy. No abnormality is seen in the gallbladder fossa. COMMON BILE DUCT: Measures 5.4 mm. No stones. No dilatation. PANCREAS: Unremarkable as visualized. No mass. No ductal dilatation. RIGHT KIDNEY: Measures 5.1 x 9.4 cm in length. Normal echogenicity. No calculus, mass, or hydronephrosis. AORTA: No aneurysmal dilatation. IVC: Unremarkable. OTHER FINDINGS: Incompletely visualize right pleural effusion. IMPRESSION: Confirmation of hyperechoic ill-defined hepatic masses right lobe. The findings are suspicious for tumor.
--- NOTE | 2017-03-21 02:08 | PN ---
DATE: 03/20/2017 SUBJECTIVE: The patient is seen today on 03/20/2017. He is not in any cardiopulmonary distress. The patient feels generalized weakness. PHYSICAL EXAMINATION: VITAL SIGNS: Blood pressure 117/56, temperature 98, respiratory rate 16, and pulse 68. HEENT: Pupils are equal and reactive to light. Normal-appearing mucosa of the conjunctivae, oropharynx, and nasal membrane mucosa. NECK: Supple. No JVD. No carotid bruits. No lymph node. No thyromegaly. CHEST AND LUNGS: Bilateral symmetrical expansion. Good air exchange. No rales. No rhonchi. CARDIOVASCULAR SYSTEM: PMI not localized. S1 and S2. No additional sounds. ABDOMEN: Normoactive bowel sounds. No tenderness. No organomegaly. No masses. EXTREMITIES: No cyanosis. No clubbing. No edema. MULTIMEDIA MANAGER: Alert, awake, and oriented x3. No neurological deficit could be appreciated. ASSESSMENT: 1. Sepsis with Gram-negative rods bacteremia. 2. Duodenitis. 3. Possible liver metastasis. PLAN: 1. GI consult. 2. Follow ID recommendations. 3. Continue IV fluids and current IV antibiotics. The patient is scheduled for triple phase level of CAT scan to rule out liver metastasis. Shobha MD Philippe
[2017-03-21 05:38] LABS: CALCIUM 8.5 mg/dL (8.4-10.2); POTASSIUM 3.9 MMOL/L (3.6-5.0)
[2017-03-21] MEDS: Sodium Chloride 0.9% 1,000 ML IV SCH ×3 (08:54→21:30)
[2017-03-21] MEDS: Enoxaparin 30 mg Syringe SC SCH (08:55)
--- NOTE | 2017-03-21 10:47 | PQF GENQUE ---
Dr. Paez, (1) ZARA probably due to Sepsis: ruled in or ruled out? (2) CKD? or CKD ruled out? 93) If CKD ruled in: Stage if known Unable to determine H and P: Elevation of BUN and creatinine, likely to be chronic as the patient stated that his primary care physician told him that he should not get any imaging study with contrast due to problem with the kidney 03/19: Renal consult: Patient most likely have acute kidney injury from sepsis. BUN: 34->37->33->40 Creatinine:1.9->1.9->1.7->1.9 GFR (Af-Amer/Non-Af Amer): 41/34->41/34->46/38-.41/34 This form is a permanent part of the medical record Clarification of your documentation is requested to better reflect the severity of illness and intensity of treatment of your patient. Indicators present [] Specify: [] [] Specify: [] [] Specify: [] [] Specify: [] Location in the medical record that reflects the above clinical findings: [] Treatment Provided: [] PHYSICIAN'S RESPONSE Based on your medical judgment of the clinical indicators outlined above please clarify the following: [] Practitioner response [] If unable to determine, please check the box, sign and date. Present On Admission (POA) Indicator: [] Present at the time of admission [] Not present at the time of admission [] Clinically Undetermined In responding to this query, please exercise your independent professional judgment. The fact that a question is asked does not imply that any particular answer is desired or expected. Thank you for your clarification on this documentation. If you have any questions please call. * Thank you, Adia Lopez RN ext. #[phone]: Sandy GALLARDO
[2017-03-21] MEDS: Acetylcysteine 20% Inhal Soln (4ml) PO SCH ×2 (11:58→21:35)
[2017-03-21] MEDS: Pantoprazole 40 mg EC Tab PO SCH (12:00)
[2017-03-21] MEDS: Lactobacillus Acidophilus 500 MU Cap PO SCH ×2 (12:05→17:33)
--- NOTE | 2017-03-21 12:32 | CP.PCM.PN ---
Subjective - Date & Time of Evaluation Date of Evaluation: 03/21/17 Time of Evaluation: 12:20 - Subjective Subjective: no overnight events Objective - Vital Signs/Intake and Output Vital Signs (last 24 hours): Temp Pulse Resp BP Pulse Ox 98.6 F 73 20 143/70 95 03/21/17 12:00 03/21/17 12:00 03/21/17 12:00 03/21/17 12:00 03/21/17 12:00 - Medications Medications: Current Medications Acetaminophen (Tylenol 325mg Tab) 650 mg PO Q6 PRN PRN Reason: Pain, moderate (4-7) Acetylcysteine (Acetylcysteine 20%) 3 ml PO BID@1000,2200 [facility] Stop: 03/21/17 22:01 Last Admin: 03/21/17 11:58 Dose: 3 ml Enoxaparin Sodium (Lovenox) 30 mg SC DAILY KATHIA PRN Reason: Protocol Last Admin: 03/21/17 08:55 Dose: 30 mg Ceftriaxone Sodium 1 gm/ (Sodium Chloride) 100 mls @ 100 mls/hr IVPB DAILY [facility] Last Admin: 03/21/17 08:55 Dose: 100 mls/hr Sodium Chloride (Sodium Chloride 0.9%) 1,000 mls @ 80 mls/hr IV .[id number] [facility] Stop: 03/22/17 08:07 Last Admin: 03/21/17 08:54 Dose: 80 mls/hr Lactobacillus Acidophilus (Bacid Acidophilus) 1 cap PO BID [facility] Last Admin: 03/21/17 12:05 Dose: 1 cap Pantoprazole Sodium (Protonix Ec Tab) 40 mg PO DAILY [facility] Last Admin: 03/21/17 12:00 Dose: 40 mg Tamsulosin HCl (Flomax) 0.4 mg PO DAILY [facility] Last Admin: 03/21/17 12:00 Dose: 0.4 mg - Labs Labs: 03/20/17 06:10 03/21/17 04:30 PT 13.7 Seconds (9.8-13.1) H 03/18/17 19:55 INR 1.3 (0.9-1.2) H 03/18/17 19:55 APTT 29.2 Seconds (25.6-37.1) 03/18/17 19:55 - Eye Exam Eye Exam: Normal appearance - Neck Exam Neck Exam: Normal Inspection - Respiratory Exam Respiratory Exam: Clear to Ausculation Bilateral, NORMAL BREATHING PATTERN - Cardiovascular Exam Cardiovascular Exam: REGULAR RHYTHM - GI/Abdominal Exam GI & Abdominal Exam: Soft, Normal Bowel Sounds Assessment and Plan - Assessment and Plan (Free Text) Assessment: 87 yo male with multiple medical problems now liver lesions refusing iv contrast IR bx of liver mass to be considered renal input appreciated
--- NOTE | 2017-03-21 13:16 | CP.PCM.PN ---
Subjective - Date & Time of Evaluation Date of Evaluation: 03/21/17 Time of Evaluation: 13:13 - Subjective Subjective: Patient is out of bed in the chair Patient is comfortable No distress reported Eating well Vital noted Objective - Vital Signs/Intake and Output Vital Signs (last 24 hours): Temp Pulse Resp BP Pulse Ox 98.6 F 73 20 143/70 95 03/21/17 12:00 03/21/17 12:00 03/21/17 12:00 03/21/17 12:00 03/21/17 12:00 - Medications Medications: Current Medications Acetaminophen (Tylenol 325mg Tab) 650 mg PO Q6 PRN PRN Reason: Pain, moderate (4-7) Acetylcysteine (Acetylcysteine 20%) 3 ml PO BID@1000,2200 [facility] Stop: 03/21/17 22:01 Last Admin: 03/21/17 11:58 Dose: 3 ml Enoxaparin Sodium (Lovenox) 30 mg SC DAILY [facility]ATHIA PRN Reason: Protocol Last Admin: 03/21/17 08:55 Dose: 30 mg Ceftriaxone Sodium 1 gm/ (Sodium Chloride) 100 mls @ 100 mls/hr IVPB DAILY [facility] Last Admin: 03/21/17 08:55 Dose: 100 mls/hr Sodium Chloride (Sodium Chloride 0.9%) 1,000 mls @ 80 mls/hr IV .[id number] [facility] Stop: 03/22/17 08:07 Last Admin: 03/21/17 08:54 Dose: 80 mls/hr Lactobacillus Acidophilus (Bacid Acidophilus) 1 cap PO BID [facility] Last Admin: 03/21/17 12:05 Dose: 1 cap Pantoprazole Sodium (Protonix Ec Tab) 40 mg PO DAILY [facility] Last Admin: 03/21/17 12:00 Dose: 40 mg Tamsulosin HCl (Flomax) 0.4 mg PO DAILY [facility] Last Admin: 03/21/17 12:00 Dose: 0.4 mg - Labs Labs: 03/20/17 06:10 03/21/17 04:30 PT 13.7 Seconds (9.8-13.1) H 03/18/17 19:55 INR 1.3 (0.9-1.2) H 03/18/17 19:55 APTT 29.2 Seconds (25.6-37.1) 03/18/17 19:55 - Constitutional Appears: No Acute Distress - ENT Exam ENT Exam: Mucous Membranes Moist - Respiratory Exam Respiratory Exam: NORMAL BREATHING PATTERN. absent: Chest Wall Tenderness - Cardiovascular Exam Cardiovascular Exam: REGULAR RHYTHM. absent: Rubs - GI/Abdominal Exam GI & Abdominal Exam: Soft, Normal Bowel Sounds - Extremities Exam Extremities Exam: absent: Calf Tenderness - Back Exam Back Exam: absent: CVA tenderness (L), CVA tenderness (R) - Neurological Exam Neurological Exam: Alert Assessment and Plan (1) Acute kidney injury Assessment & Plan: Rule out acute kidney injury most likely related to sepsis which has been resolving and improving However serum creatinine came up today for an unclear reason Continue hydration Discussed with the nurse practitioner Get serum phosphorus and PTH level And the ratio between protein to creatinine in the urine And monitoring Status: Deleted
--- NOTE | 2017-03-21 13:44 | CP.PCM.CON ---
History of Present Illness - History of Present Illness History of Present Illness: CT noted- + hepatic masses Klebs in blood - source unclear Consider MRI liver cont IV antibiotics for min 14 days Review of Systems - Review of Systems All systems: reviewed and no additional remarkable complaints except - Constitutional Constitutional: As Per HPI Past Patient History - Past Medical History & Family History Past Medical History?: No - Past Social History Smoking Status: Never Smoked - CARDIAC Hx Hypertension: Yes - MUSCULOSKELETAL/RHEUMATOLOGICAL Hx Falls: No - PSYCHIATRIC Hx Substance Use: No - SURGICAL HISTORY Hx Cholecystectomy: Yes - ANESTHESIA Hx Anesthesia: Yes Hx Anesthesia Reactions: No Hx Malignant Hyperthermia: No Has any member of the family had a problem w/ anesthesia?: No Meds Allergies/Adverse Reactions: Allergies Allergy/AdvReac Type Severity Reaction Status Date / Time No Known Allergies Allergy Verified 03/18/17 14:53 - Medications Medications: Current Medications Acetaminophen (Tylenol 325mg Tab) 650 mg PO Q6 PRN PRN Reason: Pain, moderate (4-7) Acetylcysteine (Acetylcysteine 20%) 3 ml PO BID@1000,2200 [facility] Stop: 03/21/17 22:01 Last Admin: 03/21/17 11:58 Dose: 3 ml Enoxaparin Sodium (Lovenox) 30 mg SC DAILY [facility] PRN Reason: Protocol Last Admin: 03/21/17 08:55 Dose: 30 mg Ceftriaxone Sodium 1 gm/ (Sodium Chloride) 100 mls @ 100 mls/hr IVPB DAILY [facility] Last Admin: 03/21/17 08:55 Dose: 100 mls/hr Sodium Chloride (Sodium Chloride 0.9%) 1,000 mls @ 80 mls/hr IV .[id number] [facility] Stop: 03/22/17 08:07 Last Admin: 03/21/17 08:54 Dose: 80 mls/hr Lactobacillus Acidophilus (Bacid Acidophilus) 1 cap PO BID [facility] Last Admin: 03/21/17 12:05 Dose: 1 cap Pantoprazole Sodium (Protonix Ec Tab) 40 mg PO DAILY [facility] Last Admin: 03/21/17 12:00 Dose: 40 mg Tamsulosin HCl (Flomax) 0.4 mg PO DAILY [facility] Last Admin: 03/21/17 12:00 Dose: 0.4 mg Physical Exam - Constitutional Appears: Non-toxic, Cachectic, Chronically Ill - Head Exam Head Exam: NORMOCEPHALIC - Eye Exam Eye Exam: Normal appearance. absent: Scleral icterus - ENT Exam ENT Exam: Mucous Membranes Dry, Normal External Ear Exam - Neck Exam Neck exam: Negative for: Lymphadenopathy - Respiratory Exam Respiratory Exam: Decreased Breath Sounds, Clear to Auscultation Bilateral - Cardiovascular Exam Cardiovascular Exam: REGULAR RHYTHM, +S1, +S2 - GI/Abdominal Exam GI & Abdominal Exam: Diminished Bowel Sounds, Distended, Soft - Rectal Exam Rectal Exam: Deferred - Exam Exam: NORMAL INSPECTION - Extremities Exam Extremities exam: Positive for: pedal pulses present. Negative for: calf tenderness, pedal edema, tenderness - Back Exam Back exam: absent: CVA tenderness (L), CVA tenderness (R) - Neurological Exam Neurological exam: Alert, CN II-XII Intact, Oriented x3, Reflexes Normal - Psychiatric Exam Psychiatric exam: Normal Mood - Skin Skin Exam: Dry Results - Vital Signs Recent Vital Signs: Last Vital Signs Temp 98.6 F 03/21/17 12:00 Pulse 73 03/21/17 12:00 Resp 20 03/21/17 12:00 BP 143/70 03/21/17 12:00 Pulse Ox 95 03/21/17 12:00 - Labs Result Diagrams: 03/20/17 06:10 03/21/17 04:30 Labs: Laboratory Results - last 24 hr 03/21/17 04:30 Sodium 140 Potassium 3.9 Chloride 108 H Carbon Dioxide 20 L Anion Gap 16 BUN 40 H Creatinine 1.9 H Est GFR ( Amer) 41 Est GFR (Non-Af Amer) 34 Random Glucose 90 Calcium 8.5 Assessment & Plan (1) Bacteremia due to Gram-negative bacteria Status: Acute (2) Bacteremia due to Gram-negative bacteria Status: Acute - Assessment and Plan (Free Text) Assessment: CT noted- + hepatic masses Klebs in blood - source unclear Consider MRI liver cont IV antibiotics for min 14 days
[2017-03-21] MEDS: Carbamide Peroxide OTIC SOLUTION AD SCH (17:52)
[2017-03-21 19:24] LABS: URINE BACTERIA RARE (<OCC); URINE BILIRUBIN NEGATIVE (NEGATIVE); URINE COLOR YELLOW (YELLOW); URINE GLUCOSE (UA) NEG (Normal); URINE KETONE NEGATIVE (NEGATIVE); URINE LEUKOCYTE ESTERASE NEG Leu/uL (Negative); URINE PROTEIN 30 mg/dL (NEGATIVE); URINE UROBILINOGEN 0.2-1.0 mg/dL (0.2-1.0); WBC URINE 1 /hpf (0-5)
[2017-03-21 19:49] LABS: URINE BLOOD SMALL (NEGATIVE)
[2017-03-21 19:50] LABS: RBC URINE 10 /hpf (0-3)
--- NOTE | 2017-03-22 03:42 | PN ---
DATE: 03/21/2017 SUBJECTIVE: The patient is seen today on 03/21/2017. He still has generalized weakness, but there is no more fever. PHYSICAL EXAMINATION: VITAL SIGNS: Blood pressure 143/70, temperature 98.6, respiratory rate 20, and pulse 73. HEENT: Pupils are equal and reactive to light. Normal-appearing mucosa of the conjunctivae, oropharynx, and nasal membrane mucosa. NECK: Supple. No JVD. No carotid bruits. No lymph node. No thyromegaly. CHEST AND LUNGS: Bilateral symmetrical expansion. Good air exchange. No rales. No rhonchi. CARDIOVASCULAR SYSTEM: PMI not localized. S1 and S2. No additional sounds. ABDOMEN: Normoactive bowel sounds. No tenderness. No organomegaly. No masses. EXTREMITIES: No cyanosis. No clubbing. No edema. HAIR SPINNER: Alert, awake, and oriented x3. No neurological deficits could be appreciated. ASSESSMENT: 1. Gram sepsis. 2. Gram-negative jessica bacteremia. 3. Duodenitis. 4. Possible multiple liver metastases. 5. Elevation of the BUN and creatinine, likely chronic kidney disease, stage III. PLAN: The patient refused to have the triple phase CAT scan of the liver to rule out metastases and decision regarding CT-guided liver biopsy is being made with follow recommendations of interventional radiologist and creeler. Ankita Paez MD
[2017-03-22 07:42] LABS: HEMATOCRIT 31.7 % (35.0-51.0); MEAN CELL VOLUME 85.8 fl (80.0-94.0); MEAN CORPUSCULAR HEMOGLOBIN 28.6 pg (27.0-31.0); MEAN CORPUSCULAR HGB CONC 33.3 g/dL (33.0-37.0); RED CELL DISTRIBUTION WIDTH 14.6 % (11.5-14.5); WHITE BLOOD COUNT 6.4 K/uL (4.8-10.8)
[2017-03-22 07:59] LABS: ALB/GLOB RATIO 0.9 (1.0-2.1); BILIRUBIN,TOTAL 0.3 mg/dl (0.2-1.3); CALCIUM 8.3 mg/dL (8.4-10.2); TOTAL PROTEIN 5.7 G/DL (6.3-8.2)
[2017-03-22] MEDS: Lactobacillus Acidophilus 500 MU Cap PO SCH ×2 (08:22→16:33)
[2017-03-22] MEDS: Enoxaparin 30 mg Syringe SC SCH (08:23)
[2017-03-22] MEDS: Carbamide Peroxide OTIC SOLUTION AD SCH ×2 (08:23→16:33)
[2017-03-22] MEDS: Pantoprazole 40 mg EC Tab PO SCH (08:24)
--- NOTE | 2017-03-22 12:19 | CP.PCM.PN ---
Subjective - Date & Time of Evaluation Date of Evaluation: 03/22/17 Time of Evaluation: 09:40 - Subjective Subjective: seen and examined feels much better pe: vs: reviewed gen: nad sclera: anicteric op: clear neck:supple cv: +s1+s2 lungs: cta abd:soft ext: no edema neuro: following commands psych: normal affect skin: no appreciable rash Objective - Vital Signs/Intake and Output Vital Signs (last 24 hours): Temp Pulse Resp BP Pulse Ox 98.4 F 73 18 120/70 97 03/22/17 12:14 03/22/17 12:14 03/22/17 12:14 03/22/17 12:14 03/22/17 12:14 - Medications Medications: Current Medications Acetaminophen (Tylenol 325mg Tab) 650 mg PO Q6 PRN PRN Reason: Pain, moderate (4-7) Carbamide Peroxide (Debrox Ear Drops) 5 drop AD BID [facility] Last Admin: 03/22/17 08:23 Dose: 5 drop Enoxaparin Sodium (Lovenox) 30 mg SC DAILY [facility] PRN Reason: Protocol Last Admin: 03/22/17 08:23 Dose: 30 mg Ceftriaxone Sodium 1 gm/ (Sodium Chloride) 100 mls @ 100 mls/hr IVPB DAILY [facility] Last Admin: 03/22/17 08:24 Dose: 100 mls/hr Lactobacillus Acidophilus (Bacid Acidophilus) 1 cap PO BID [facility] Last Admin: 03/22/17 08:22 Dose: 1 cap Pantoprazole Sodium (Protonix Ec Tab) 40 mg PO DAILY [facility] Last Admin: 03/22/17 08:24 Dose: 40 mg Tamsulosin HCl (Flomax) 0.4 mg PO DAILY [facility] Last Admin: 03/22/17 08:23 Dose: 0.4 mg - Labs Labs: 03/22/17 07:00 03/22/17 05:30 PT 13.7 Seconds (9.8-13.1) H 03/18/17 19:55 INR 1.3 (0.9-1.2) H 03/18/17 19:55 APTT 29.2 Seconds (25.6-37.1) 03/18/17 19:55 Assessment and Plan - Assessment and Plan (Free Text) Assessment: ARF/ Hepatic Mass/ Sepsis/ bacteremia plan: Cr slightly improved, [place] some degree of CKD at baseline will have to try to get records from PCP on abx per ID f/u GI recc : hepatic mass will check UPCR renal us reviewed
[2017-03-22] MEDS ORDERED: Carbamide Peroxide OTIC SOLUTION AD SCH (21:00)
--- NOTE | 2017-03-22 23:22 | PN ---
DATE: 03/22/2017 SUBJECTIVE: Patient is seen today, 03/22/2017. He is not in any cardiopulmonary distress. Patient has Klebsiella bacteremia, which is sensitive to Rocephin that the patient has been on since admission. PHYSICAL EXAMINATION: VITAL SIGNS: Temperature 98.4, respiratory rate 18, pulse 72, blood pressure 125/70. HEENT: Pupils are equal and reactive to light. Normal-appearing mucosa of the conjunctivae, oropharynx, and nasal membrane mucosa. NECK: Supple. No JVD. No carotid bruits. No lymph node. No thyromegaly. CHEST AND LUNGS: Bilateral symmetrical expansion. Good air exchange. No rales. No rhonchi. CARDIOVASCULAR SYSTEM: PMI not localized. S1, S2. No additional sounds. ABDOMEN: Normoactive bowel sounds. No tenderness. No organomegaly. No masses. EXTREMITIES: No cyanosis. No clubbing. No edema. CENTRAL NERVOUS SYSTEM: Alert, awake, and oriented x2. No neurological deficits could be appreciated. ASSESSMENT: 1. Gram sepsis. 2. Gram-negative bacteriemia, Klebsiella bacteriemia. 3. CAT scan findings of duodenitis as well as multiple liver lesions, rule out metastasis. PLAN: Patient is being considered by interventional radiologist for CT-guided biopsy as a therapeutic CAT scan has a high risk for deterioration of patient's condition of chronic kidney disease. Ankita Paez MD
[2017-03-23] MEDS: Carbamide Peroxide OTIC SOLUTION AD SCH ×2 (08:41→16:33)
[2017-03-23] MEDS: Lactobacillus Acidophilus 500 MU Cap PO SCH ×2 (08:42→16:33)
[2017-03-23] MEDS: Enoxaparin 30 mg Syringe SC SCH (08:42)
[2017-03-23] MEDS: Pantoprazole 40 mg EC Tab PO SCH (08:42)
--- NOTE | 2017-03-23 14:03 | CP.PCM.PN ---
Subjective - Date & Time of Evaluation Date of Evaluation: 03/23/17 Time of Evaluation: 09:00 - Subjective Subjective: awake alert NAD CT noted- + hepatic masses Klebs in blood - source unclear Consider MRI liver cont antibiotics for min 14 days Objective - Vital Signs/Intake and Output Vital Signs (last 24 hours): Temp Pulse Resp BP Pulse Ox 98.4 F 76 18 121/68 97 03/23/17 12:00 03/23/17 12:00 03/23/17 12:00 03/23/17 12:00 03/23/17 12:00 - Medications Medications: Current Medications Acetaminophen (Tylenol 325mg Tab) 650 mg PO Q6 PRN PRN Reason: Pain, moderate (4-7) Carbamide Peroxide (Debrox Ear Drops) 5 drop AD BID [facility] Last Admin: 03/23/17 08:41 Dose: 5 drop Ceftriaxone Sodium 1 gm/ (Sodium Chloride) 100 mls @ 100 mls/hr IVPB DAILY [facility] Last Admin: 03/23/17 08:42 Dose: 100 mls/hr Lactobacillus Acidophilus (Bacid Acidophilus) 1 cap PO BID [facility] Last Admin: 03/23/17 08:42 Dose: 1 cap Pantoprazole Sodium (Protonix Ec Tab) 40 mg PO DAILY [facility] Last Admin: 03/23/17 08:42 Dose: 40 mg Tamsulosin HCl (Flomax) 0.4 mg PO DAILY [facility] Last Admin: 03/23/17 08:41 Dose: 0.4 mg - Labs Labs: 03/22/17 07:00 03/22/17 05:30 PT 13.7 Seconds (9.8-13.1) H 03/18/17 19:55 INR 1.3 (0.9-1.2) H 03/18/17 19:55 APTT 29.2 Seconds (25.6-37.1) 03/18/17 19:55 - Constitutional Appears: Non-toxic, Chronically Ill - Head Exam Head Exam: NORMOCEPHALIC - Eye Exam Eye Exam: PERRL - ENT Exam ENT Exam: Mucous Membranes Dry - Neck Exam Neck Exam: Normal Inspection - Respiratory Exam Respiratory Exam: Decreased Breath Sounds - Cardiovascular Exam Cardiovascular Exam: REGULAR RHYTHM - GI/Abdominal Exam GI & Abdominal Exam: Distended, Soft - Rectal Exam Rectal Exam: Deferred - Exam Exam: NORMAL INSPECTION - Extremities Exam Extremities Exam: absent: Pedal Edema - Back Exam Back Exam: absent: CVA tenderness (L), CVA tenderness (R) - Neurological Exam Neurological Exam: Alert, Awake, Oriented x3 - Psychiatric Exam Psychiatric exam: Normal Mood - Skin Skin Exam: Dry, Intact Assessment and Plan (1) Bacteremia due to Gram-negative bacteria Status: Acute (2) Bacteremia due to Gram-negative bacteria Status: Acute - Assessment and Plan (Free Text) Assessment: cont iv then PO antibiotics GI eval and follow up consider MRI liver / biopsy
--- NOTE | 2017-03-24 08:51 | DS ---
HISTORY OF PRESENT ILLNESS: This is an 87-year-old male patient, who I was called to evaluate for cystitis and BPH. The patient is admitted for "severe sepsis," however, his white blood cell count is only 11.7. The patient had blood cultures and urine cultures done, appears to have Klebsiella in his blood screen. Urine culture came back no growth. The patient is voiding well. He is on Flomax from another urologist, who is monitoring him cystoscopically for evaluation of BPH. The patient, at this time, is having no dysuria and no difficulty with voiding. He has some element of renal compromise. His BUN and creatinine is 40 and 1.9. Current white blood cell count is under 10,000. Urine shows no significant amount of white cells. He does have greater than 500 protein in his urine. Through conversation with the patient, I am not sure that he is being followed by a infantry operations specialist but perhaps would be a good idea for an evaluation. He is being treated at this time with ceftriaxone and Rocephin, and apparently he is afebrile and appears to be stable at this time. Urologically, at this time, there is no further intervention that needs to be done. He should continue on his Flomax at 0.4 mg once a day. He has a routine scheduled appointment visit with head of history outpatient on April 23 and suggested that he follow up with that appointment. Nelson Chen MD
[2017-03-24] MEDS: Lactobacillus Acidophilus 500 MU Cap PO SCH ×3 (09:07→16:27)
[2017-03-24] MEDS: Carbamide Peroxide OTIC SOLUTION AD SCH ×2 (09:28→16:28)
--- NOTE | 2017-03-24 09:40 | CP.PCM.PN ---
Subjective - Date & Time of Evaluation Date of Evaluation: 03/24/17 Time of Evaluation: 09:38 - Subjective Subjective: Patient and bed no new events reported Appeared to be comfortable Vital sign noted Objective - Vital Signs/Intake and Output Vital Signs (last 24 hours): Temp Pulse Resp BP Pulse Ox 98.4 F 72 20 151/71 H 95 03/24/17 08:00 03/24/17 08:00 03/24/17 08:00 03/24/17 08:00 03/24/17 08:00 - Medications Medications: Current Medications Acetaminophen (Tylenol 325mg Tab) 650 mg PO Q6 PRN PRN Reason: Pain, moderate (4-7) Carbamide Peroxide (Debrox Ear Drops) 5 drop AD BID [facility] Last Admin: 03/24/17 09:28 Dose: 5 drop Lactobacillus Acidophilus (Bacid Acidophilus) 1 cap PO BID [facility] Last Admin: 03/24/17 09:07 Dose: Not Given Pantoprazole Sodium (Protonix Ec Tab) 40 mg PO DAILY [facility] Last Admin: 03/23/17 08:42 Dose: 40 mg Tamsulosin HCl (Flomax) 0.4 mg PO DAILY [facility] Last Admin: 03/24/17 09:07 Dose: Not Given - Labs Labs: 03/22/17 07:00 03/22/17 05:30 PT 13.7 Seconds (9.8-13.1) H 03/18/17 19:55 INR 1.3 (0.9-1.2) H 03/18/17 19:55 APTT 29.2 Seconds (25.6-37.1) 03/18/17 19:55 - Constitutional Appears: No Acute Distress - ENT Exam ENT Exam: Mucous Membranes Moist - Respiratory Exam Respiratory Exam: NORMAL BREATHING PATTERN. absent: Chest Wall Tenderness - Cardiovascular Exam Cardiovascular Exam: REGULAR RHYTHM. absent: Rubs - GI/Abdominal Exam GI & Abdominal Exam: Soft, Normal Bowel Sounds - Extremities Exam Extremities Exam: absent: Calf Tenderness - Back Exam Back Exam: absent: CVA tenderness (L), CVA tenderness (R) - Neurological Exam Neurological Exam: Alert - Psychiatric Exam Psychiatric exam: Normal Affect - Skin Skin Exam: Normal Color Assessment and Plan (1) Acute kidney injury Assessment & Plan: Acute kidney injury superimposed on chronic kidney disease. Stage III Appeared to be stable Liver mass Patient is going for biopsy Continue monitoring kidney function. Status: Deleted
[2017-03-24] MEDS ORDERED: Sodium Chloride 0.9% 1,000 ML IV SCH (10:00)
[2017-03-24 10:02] LABS: HEMATOCRIT 35.5 % (35.0-51.0); MEAN CELL VOLUME 86.3 fl (80.0-94.0); MEAN CORPUSCULAR HEMOGLOBIN 28.6 pg (27.0-31.0); MEAN CORPUSCULAR HGB CONC 33.1 g/dL (33.0-37.0); RED CELL DISTRIBUTION WIDTH 14.2 % (11.5-14.5); WHITE BLOOD COUNT 8.8 K/uL (4.8-10.8)
[2017-03-24 10:14] LABS: BILIRUBIN,TOTAL 0.4 mg/dl (0.2-1.3); CALCIUM 9.1 mg/dL (8.4-10.2); POTASSIUM 4.8 MMOL/L (3.6-5.0); TOTAL PROTEIN 6.8 G/DL (6.3-8.2)
[2017-03-24] MEDS ORDERED: Absorbable Gelatin Sponge Size 12-7 ONE (11:44)
[2017-03-24] MEDS ORDERED: Lidocaine 1% Inj (20ml) ONE (11:44)
--- NOTE | 2017-03-24 12:09 | CP.PCM.PN ---
Subjective - Date & Time of Evaluation Date of Evaluation: 03/24/17 Time of Evaluation: 07:00 - Subjective Subjective: CT noted- + hepatic masses Klebs in blood - source unclear Consider MRI liver cont antibiotics for min 14 days Objective - Vital Signs/Intake and Output Vital Signs (last 24 hours): Temp Pulse Resp BP Pulse Ox 98.4 F 72 20 151/71 H 95 03/24/17 08:00 03/24/17 08:00 03/24/17 08:00 03/24/17 08:00 03/24/17 08:00 - Medications Medications: Current Medications Acetaminophen (Tylenol 325mg Tab) 650 mg PO Q6 PRN PRN Reason: Pain, moderate (4-7) Carbamide Peroxide (Debrox Ear Drops) 5 drop AD BID [facility] Last Admin: 03/24/17 09:28 Dose: 5 drop Ceftriaxone Sodium 1 gm/ (Sodium Chloride) 100 mls @ 100 mls/hr IVPB DAILY [facility] PRN Reason: Protocol Sodium Chloride (Sodium Chloride 0.9%) 1,000 mls @ 75 mls/hr IV [id number] [facility] Stop: 03/25/17 09:48 Lactobacillus Acidophilus (Bacid Acidophilus) 1 cap PO BID [facility] Last Admin: 03/24/17 09:07 Dose: Not Given Pantoprazole Sodium (Protonix Ec Tab) 40 mg PO DAILY [facility] Last Admin: 03/23/17 08:42 Dose: 40 mg Tamsulosin HCl (Flomax) 0.4 mg PO DAILY [facility] Last Admin: 03/24/17 09:07 Dose: Not Given - Labs Labs: 03/24/17 09:57 03/24/17 09:57 PT 13.7 Seconds (9.8-13.1) H 03/18/17 19:55 INR 1.3 (0.9-1.2) H 03/18/17 19:55 APTT 29.2 Seconds (25.6-37.1) 03/18/17 19:55 - Constitutional Appears: Non-toxic, Chronically Ill - Head Exam Head Exam: NORMOCEPHALIC - Eye Exam Eye Exam: PERRL. absent: Scleral icterus - ENT Exam ENT Exam: Mucous Membranes Dry - Neck Exam Neck Exam: absent: Lymphadenopathy - Respiratory Exam Respiratory Exam: Decreased Breath Sounds, Clear to Ausculation Bilateral - Cardiovascular Exam Cardiovascular Exam: REGULAR RHYTHM, +S1, +S2 - GI/Abdominal Exam GI & Abdominal Exam: Distended, Soft. absent: Tenderness - Rectal Exam Rectal Exam: Deferred - Exam Exam: NORMAL INSPECTION - Extremities Exam Extremities Exam: absent: Pedal Edema - Back Exam Back Exam: absent: CVA tenderness (L), CVA tenderness (R) - Neurological Exam Neurological Exam: Alert, Awake, Oriented x3 Assessment and Plan (1) Bacteremia due to Gram-negative bacteria Status: Acute (2) Bacteremia due to Gram-negative bacteria Status: Acute - Assessment and Plan (Free Text) Assessment: CT noted- + hepatic masses Klebs in blood - source unclear Consider MRI liver cont antibiotics for min 14 days would obtain GI eval
[2017-03-24 13:00] VITALS: O2SAT 96
[2017-03-24] MEDS: Pantoprazole 40 mg EC Tab PO SCH (13:27)
[2017-03-24] MEDS ORDERED: Albuterol-Ipratrop 3 mg / 0.5 (3 ml) UD INH PRN (15:56)
[2017-03-24 16:21] VITALS: BP 135/70; PULSE 74; RESP 20; TEMP 97.9
--- NOTE | 2017-03-24 18:12 | RAD ---
HISTORY: Cough. Technique: Single view portable semi erect @ 17:42. COMPARISON: 03/18/2017 FINDINGS: LUNGS: No active pulmonary disease. PLEURA: No significant pleural effusion identified, no pneumothorax apparent. CARDIOVASCULAR: No radiographic findings to suggest acute or significant cardiovascular disease. OSSEOUS STRUCTURES: No significant abnormalities. VISUALIZED UPPER ABDOMEN: Normal. OTHER FINDINGS: None. IMPRESSION: No active disease. No significant interval change compared to the prior examination(s).
--- NOTE | 2017-03-25 08:37 | DS ---
REASON FOR ADMISSION: This is an 87-year-old [facility] male with no significant past medical history except for elevation of the BUN and creatinine, presented to emergency room with symptoms of fever and chills. COURSE OF HOSPITALIZATION: The patient was admitted to the hospital and he had blood culture done that grew Klebsiella pneumoniae. Present symptoms were responding well to Rocephin. Klebsiella bacteremia was sensitive to Rocephin. The patient had an ID consult done by Dr. Stahl and GI consult done by Dr. Rasheed for CT scan of the abdomen and pelvis that showed duodenitis and multiple liver lesions. The patient refused any contrast study due to the elevation of the creatinine and did not want to take the risk of any worsening of kidney function. Decision was to treat the patient conservatively and to continue IV antibiotics for another week for which the patient was discharged to transitional care unit. FINAL DIAGNOSES: 1. Sepsis, Klebsiella bacteremia. 2. Multiple liver abscesses of unknown etiology. 3. Duodenitis. 4. Possible benign prostatic hypertrophy. Ankita Paez MD
--- NOTE | 2017-03-25 16:01 | CP.PCM.PN ---
Subjective - Date & Time of Evaluation Date of Evaluation: 03/24/17 Time of Evaluation: 15:20 - Subjective Subjective: no pain Objective - Vital Signs/Intake and Output Vital Signs (last 24 hours): Temp Pulse Resp BP Pulse Ox 97.9 F 74 20 135/70 96 03/24/17 16:58 03/24/17 16:58 03/24/17 16:58 03/24/17 16:58 03/25/17 14:41 - Labs Labs: 03/24/17 09:57 03/24/17 09:57 PT 13.7 Seconds (9.8-13.1) H 03/18/17 19:55 INR 1.3 (0.9-1.2) H 03/18/17 19:55 APTT 29.2 Seconds (25.6-37.1) 03/18/17 19:55 - Head Exam Head Exam: NORMAL INSPECTION - Cardiovascular Exam Cardiovascular Exam: REGULAR RHYTHM - GI/Abdominal Exam GI & Abdominal Exam: Soft, Normal Bowel Sounds Assessment and Plan - Assessment and Plan (Free Text) Assessment: 87 yo male with liver lesions rec bx or contrast enhanced imaging renal input appreciated
== END 2017-03-24 17:55 | DRG 871 ==
LOC: H.ER 14:52 → H.ERHOLD 18:32 → H.TEL 21:18
PROVIDERS: ADMIT Internal Medicine; ATTEND Internal Medicine
DX: A41.59 Other Gram-negative sepsis (principal); K75.0 Abscess of liver; N17.9 Acute kidney failure, unspecified; N18.3 Chronic kidney disease, stage 3 (moderate); R31.29 Other microscopic hematuria; R65.20 Severe sepsis without septic shock; I12.9 Hypertensive chronic kidney disease with stage 1 through stage 4 chronic kidney disease, or unspecified chronic kidney disease; K21.9 Gastro-esophageal reflux disease without esophagitis; K29.70 Gastritis, unspecified, without bleeding; K29.80 Duodenitis without bleeding; N40.0 Benign prostatic hyperplasia without lower urinary tract symptoms

== ENCOUNTER 2017-03-24 14:57 | Inpatient (IN) | payer OTHER ==
[2017-03-24 17:40] VITALS: BMI 23.5
[2017-03-24] MEDS: Albuterol-Ipratrop 3 mg / 0.5 (3 ml) UD INH PRN (19:14)
[2017-03-25] MEDS: Pantoprazole 40 mg EC Tab PO SCH (08:36)
[2017-03-25] MEDS: Carbamide Peroxide OTIC SOLUTION AD SCH ×2 (08:37→16:10)
[2017-03-25] MEDS: Lactobacillus Acidophilus 500 MU Cap PO SCH ×2 (08:37→16:10)
[2017-03-25] MEDS: Enoxaparin 30 mg Syringe SC SCH (08:37)
[2017-03-25] MEDS: cefTRIAXone 1 gm/NS 100ML IVPB SCH (08:39)
[2017-03-25] MEDS: Albuterol-Ipratrop 3 mg / 0.5 (3 ml) UD INH PRN (08:58)
[2017-03-25] MEDS ORDERED: cefTRIAXone IV 1 gm in Dextros 50 ML BAG IVPB SCH (09:00)
[2017-03-26] MEDS: Albuterol-Ipratrop 3 mg / 0.5 (3 ml) UD INH PRN ×2 (04:18→20:33)
[2017-03-26 06:23] LABS: BILIRUBIN,TOTAL 0.3 mg/dl (0.2-1.3); CALCIUM 9.1 mg/dL (8.4-10.2); POTASSIUM 4.8 MMOL/L (3.6-5.0); TOTAL PROTEIN 7.2 G/DL (6.3-8.2)
[2017-03-26 06:29] LABS: ALB/GLOB RATIO 0.9 (1.0-2.1)
[2017-03-26 08:08] LABS: HEMATOCRIT 35.8 % (35.0-51.0); MEAN CELL VOLUME 87.5 fl (80.0-94.0); MEAN CORPUSCULAR HEMOGLOBIN 28.9 pg (27.0-31.0); RED CELL DISTRIBUTION WIDTH 14.5 % (11.5-14.5); WHITE BLOOD COUNT 9.9 K/uL (4.8-10.8)
[2017-03-26] MEDS: Lactobacillus Acidophilus 500 MU Cap PO SCH ×2 (08:59→16:00)
[2017-03-26] MEDS: Carbamide Peroxide OTIC SOLUTION AD SCH ×2 (08:59→16:00)
[2017-03-26] MEDS: Enoxaparin 30 mg Syringe SC SCH (09:00)
[2017-03-26] MEDS: cefTRIAXone 1 gm/NS 100ML IVPB SCH (09:00)
[2017-03-26] MEDS: Pantoprazole 40 mg EC Tab PO SCH (09:00)
--- NOTE | 2017-03-27 08:52 | HP ---
HISTORY OF PRESENT ILLNESS: This is an 87-year-old [place] male with history of chronic kidney disease was admitted to transition care unit for completion of IV antibiotic therapy as well as physical therapy and deconditioning. The patient was admitted to acute care prior to this admission for sepsis secondary to Klebsiella pneumoniae bacteremia. The only source of infection that was detected was the duodenitis that was shown in the CAT scan of the abdomen. The patient denies to have any abdominal pain or vomiting or nausea. The patient denies having any chest pain or shortness of breath. Other review of systems is negative. ALLERGIES: NO KNOWN ALLERGIES. MEDICATIONS: Ceftriaxone 1 g daily, Flomax 0.4 mg daily, pantoprazole 40 mg daily and Lovenox 40 mg at bedtimes. PAST MEDICAL HISTORY: Chronic kidney disease. SOCIAL HISTORY: No history of smoking, ETOH or substance abuse. FAMILY HISTORY: Noncontributory. PHYSICAL EXAMINATION: GENERAL: The patient is in bed, comfortable, not in any cardiopulmonary distress. VITAL SIGNS: Blood pressure 137/66, temperature 97.3, respiratory rate 20 and pulse 85. HEENT: Pupils are equal and reactive to light. Normal-appearing mucosa of the conjunctivae, oropharynx and nasal membrane mucosa. NECK: Supple. No JVD. No carotid bruits. No lymph node. No thyromegaly. CHEST AND LUNGS: Bilateral symmetrical expansion. Good air exchange. No rales. No rhonchi. CARDIOVASCULAR SYSTEM: PMI not localized. S1 and S2. No additional sounds. ABDOMEN: Normoactive bowel sounds. No tenderness. No organomegaly. No masses. EXTREMITIES: No cyanosis. No clubbing. No edema. ABRASIVE MIXER HELPER: Alert, awake and oriented x3. No neurological deficits could be appreciated. ASSESSMENT: 1. Chronic kidney disease. 2. Status post sepsis and Klebsiella pneumoniae bacteremia. 3. Multiple liver lesions which the patient stated that it was chronic and it is not recent. No further workup was done for this multiple liver lesions as contrast study was rejected by the patient due to his chronic kidney disease and he did not want to take any risks for worsening of kidney function. Interventional radiologist refused to do any biopsy without triple-phase CAT scan. Ankita Paez MD [facility] # [id number]
[2017-03-27] MEDS: cefTRIAXone 1 gm/NS 100ML IVPB SCH (09:06)
[2017-03-27] MEDS: Lactobacillus Acidophilus 500 MU Cap PO SCH (09:10)
[2017-03-27] MEDS: Pantoprazole 40 mg EC Tab PO SCH (09:10)
[2017-03-27] MEDS: Enoxaparin 30 mg Syringe SC SCH (09:10)
[2017-03-27] MEDS: Carbamide Peroxide OTIC SOLUTION AD SCH (09:11)
--- NOTE | 2017-03-27 18:36 | CP.PCM.CON ---
History of Present Illness - History of Present Illness History of Present Illness: Podiatry Consult Note - Dr. Vasquez 87 year old male seen at bedside complaining of painful, elongated toenails. Patient seen resting comfortably at time of visit. Patient states his nails are elongated and cause discomfort when wearing socks or shoes; patient states he is unable to trim his nails himself. Patient denies N/V/F/D/C/SOB/calf pain. Offers no other pedal complaints at this time. Review of Systems - Review of Systems All systems: reviewed and no additional remarkable complaints except (as per HPI ) Past Patient History - Past Medical History & Family History Past Medical History?: No - Past Social History Smoking Status: Former Smoker - CARDIAC Hx Hypertension: Yes - RENAL Hx Chronic Kidney Disease: Yes - MUSCULOSKELETAL/RHEUMATOLOGICAL Hx Falls: No - GASTROINTESTINAL Hx Clostridium Difficile: Yes Hx Colitis: Yes Hx Gastritis: Yes Hx Gastroesophageal Reflux: Yes Other/Comment: liver tumor - GENITOURINARY/GYNECOLOGICAL Other/Comment: bladder tumor - PSYCHIATRIC Hx Substance Use: No - SURGICAL HISTORY Hx Cholecystectomy: Yes - ANESTHESIA Hx Anesthesia: Yes Hx Anesthesia Reactions: No Hx Malignant Hyperthermia: No Meds Allergies/Adverse Reactions: Allergies Allergy/AdvReac Type Severity Reaction Status Date / Time No Known Allergies Allergy Verified 03/24/17 17:40 - Medications Medications: Current Medications Acetaminophen (Tylenol 325mg Tab) 650 mg PO Q6 PRN PRN Reason: Pain, moderate (4-7) Albuterol/Ipratropium (Duoneb 3 Mg/0.5 Mg (3 Ml) Ud) 3 ml INH RQ6 PRN PRN Reason: Shortness of Breath Last Admin: 03/26/17 20:33 Dose: 3 ml Enoxaparin Sodium (Lovenox) 30 mg SC DAILY [facility] PRN Reason: Protocol Last Admin: 03/27/17 09:10 Dose: 30 mg Ceftriaxone Sodium 1 gm/ (Sodium Chloride) 100 mls @ 100 mls/hr IVPB DAILY [facility] Last Admin: 03/27/17 09:06 Dose: 100 mls/hr Lactobacillus Acidophilus (Bacid Acidophilus) 1 cap PO DAILY [facility] Pantoprazole Sodium (Protonix Ec Tab) 40 mg PO DAILY [facility] Last Admin: 03/27/17 09:10 Dose: 40 mg Tamsulosin HCl (Flomax) 0.4 mg PO DAILY [facility] Last Admin: 10/12/17 09:10 Dose: 0.4 mg Physical Exam - Constitutional Appears: Well, Non-toxic, No Acute Distress - Extremities Exam Additional comments: VASC: DP and PT pulses weakly palpable 1/4 b/l. CFT <3 seconds to all digits x10. TG warm to warm. No edema noted. Hair growth appreciated. NEURO: Gross sensation intact bilaterally. DERM: Nails 1-5 b/l are elongated, thickened, and dystrophic with the presence of subungual debris. No open lesions noted. ORTHO: Pain on palpation nails 1-2 b/l. - Neurological Exam Neurological exam: Alert, Oriented x3 - Psychiatric Exam Psychiatric exam: Normal Affect, Normal Mood Results - Vital Signs Recent Vital Signs: Last Vital Signs Temp 98.1 F 03/27/17 16:46 Pulse 79 03/27/17 16:46 Resp 18 03/27/17 16:46 BP 124/71 03/27/17 16:46 Pulse Ox 100 03/27/17 16:46 - Labs Result Diagrams: 03/26/17 08:03 03/26/17 04:00 Assessment & Plan - Assessment and Plan (Free Text) Assessment: 87 year old male with onychomycosis nails 1-5 b/l Plan: Patient seen and evaluated at bedside Discussed with attending, Dr. Vasquez Labs and vitals reviewed Nails 1-5 b/l debrided in thickness and length without incident and to patient satisfaction Advised patient to follow up at [facility] podiatry clinic with Dr. Vasquez or [facility] for outpatient care Stable from podiatry standpoint Podiatry to sign off at this time Thank you for allowing podiatry to partake in the care of this patient
[2017-03-27] MEDS: Albuterol-Ipratrop 3 mg / 0.5 (3 ml) UD INH PRN (20:23)
[2017-03-27 21:17] VITALS: RESP 20
--- NOTE | 2017-03-28 02:14 | PN ---
DATE: 03/27/2017 SUBJECTIVE: The patient is seen today on 03/27/2017. He is not in any cardiopulmonary distress. PHYSICAL EXAMINATION: VITAL SIGNS: Blood pressure is 138/72, temperature 97.2, respiratory rate 20, and pulse 89. HEENT: Pupils are equal and reactive to light. Normal-appearing mucosa of the conjunctivae, oropharyngeal, and nasal membrane mucosa. NECK: Supple. No JVD. No carotid bruits. No lymph node. No thyromegaly. CHEST AND LUNGS: Bilateral symmetrical expansion. Good air exchange. No rales. No rhonchi. CARDIOVASCULAR SYSTEM: PMI not localized. S1 and S2. No additional sounds. ABDOMEN: Normoactive bowel sounds. No tenderness. No organomegaly. No masses. EXTREMITIES: No cyanosis. No clubbing. No edema. REFINING EQUIPMENT OPERATOR: Alert, awake, and oriented x3. No neurological deficits could be appreciated. ASSESSMENT: Status post sepsis, bacteremia, duodenitis, benign prostatic hypertrophy. PLAN: Continue current IV antibiotics and current medications. Ankita Paez MD
[2017-03-28] MEDS: Pantoprazole 40 mg EC Tab PO SCH (08:33)
[2017-03-28] MEDS: Enoxaparin 30 mg Syringe SC SCH (08:33)
[2017-03-28] MEDS: cefTRIAXone 1 gm/NS 100ML IVPB SCH (08:34)
[2017-03-28] MEDS: Lactobacillus Acidophilus 500 MU Cap PO SCH (08:34)
[2017-03-28] MEDS: Albuterol-Ipratrop 3 mg / 0.5 (3 ml) UD INH PRN ×2 (08:46→21:16)
[2017-03-29] MEDS: Enoxaparin 30 mg Syringe SC SCH (08:29)
[2017-03-29] MEDS: Lactobacillus Acidophilus 500 MU Cap PO SCH (08:29)
[2017-03-29] MEDS: Pantoprazole 40 mg EC Tab PO SCH (08:29)
[2017-03-29] MEDS: cefTRIAXone 1 gm/NS 100ML IVPB SCH (08:30)
[2017-03-29] MEDS: Albuterol-Ipratrop 3 mg / 0.5 (3 ml) UD INH PRN (15:19)
[2017-03-29] MEDS: Albuterol-Ipratrop 3 mg / 0.5 (3 ml) UD INH SCH (19:46)
[2017-03-29] MEDS: Fluticasone-Salmeterol 250-50mcg Diskus IH SCH (20:56)
[2017-03-30] MEDS: Albuterol-Ipratrop 3 mg / 0.5 (3 ml) UD INH SCH ×4 (01:05→19:23)
[2017-03-30 07:04] LABS: HEMATOCRIT 32.7 % (35.0-51.0); MEAN CORPUSCULAR HEMOGLOBIN 28.8 pg (27.0-31.0); MEAN CORPUSCULAR HGB CONC 33.1 g/dL (33.0-37.0); RED CELL DISTRIBUTION WIDTH 14.3 % (11.5-14.5); WHITE BLOOD COUNT 8.7 K/uL (4.8-10.8)
[2017-03-30 07:25] LABS: CALCIUM 8.5 mg/dL (8.4-10.2); POTASSIUM 4.4 MMOL/L (3.6-5.0)
[2017-03-30] MEDS: Fluticasone-Salmeterol 250-50mcg Diskus IH SCH ×2 (08:23→22:03)
[2017-03-30] MEDS: Pantoprazole 40 mg EC Tab PO SCH (08:23)
[2017-03-30] MEDS: Enoxaparin 30 mg Syringe SC SCH (08:23)
[2017-03-30] MEDS: cefTRIAXone 1 gm/NS 100ML IVPB SCH (08:24)
[2017-03-30] MEDS: Lactobacillus Acidophilus 500 MU Cap PO SCH (10:36)
[2017-03-31] MEDS: Albuterol-Ipratrop 3 mg / 0.5 (3 ml) UD INH SCH ×4 (01:03→19:15)
[2017-03-31] MEDS: Pantoprazole 40 mg EC Tab PO SCH (08:44)
[2017-03-31] MEDS: Enoxaparin 30 mg Syringe SC SCH (08:44)
[2017-03-31] MEDS: Fluticasone-Salmeterol 250-50mcg Diskus IH SCH ×2 (08:44→21:00)
[2017-03-31] MEDS: Lactobacillus Acidophilus 500 MU Cap PO SCH (08:45)
[2017-03-31] MEDS: cefTRIAXone 1 gm/NS 100ML IVPB SCH (08:45)
--- NOTE | 2017-03-31 09:04 | PN ---
DAILY PROGRESS NOTE DATE: SUBJECTIVE: The patient is seen today, 03/29/2017. He is not in any cardiopulmonary distress, but the patient has cough with some wheezing. PHYSICAL EXAMINATION: VITAL SIGNS: Blood pressure is 126/73, temperature 97.7, respiratory rate 20 and pulse 88. HEENT: Pupils are equal and reactive to light. Normal appearing mucosa of the conjunctivae, oropharyngeal and nasal membrane mucosa. NECK: Supple. No JVD. No carotid bruit. No lymph node. No thyromegaly. CHEST AND LUNGS: Bilateral symmetrical expansion. Good air exchange. No rales. No rhonchi. CARDIOVASCULAR: PMI not localized. S1 and S2. No additional sounds. ABDOMEN: Normoactive bowel sounds. No tenderness. No organomegaly. No masses. EXTREMITIES: No cyanosis. No clubbing. No edema. CENTRAL NERVOUS SYSTEM: Alert, awake, and oriented x3. No neurological deficits could be appreciated. ASSESSMENT: Status post sepsis, bacteremia, duodenitis, bronchitis with hyperactive airway. PLAN: We will order inhaled steroid and we will continue current IV antibiotics. Continue nebulizer treatment. Reviewed the chest x-ray that was done on 03/24/2017 and it showed no active disease and no significant interval change compared to the prior examination. Ankita Paez MD
--- NOTE | 2017-03-31 20:52 | PN ---
DATE: 03/30/2017 SUBJECTIVE: He is not in any cardiopulmonary distress and decreased cough. PHYSICAL EXAMINATION VITAL SIGNS: Blood pressure 119/64, temperature 97.7, respiratory rate 20, and pulse 81. HEENT: Pupils equal and reactive to light. Normal-appearing mucosa of the conjunctivae, oropharyngeal, and nasal membrane mucosa. NECK: Supple. No JVD. No carotid bruits. No lymph node. No thyromegaly. CHEST AND LUNGS: Bilateral symmetrical expansion. Good air exchange. No rales. No rhonchi. CARDIOVASCULAR SYSTEM: PMI not localized. S1 and S2. No additional sounds. ABDOMEN: Normoactive bowel sounds. No tenderness. No organomegaly. No masses. EXTREMITIES: No cyanosis. No clubbing. No edema. CENTRAL NERVOUS SYSTEM: Alert, awake, and oriented x2. No neurological deficits could be appreciated. ASSESSMENT: 1. Status post sepsis secondary to bacteriemia. 2. Duodenitis. 3. Bronchitis PLAN: Continue current IV antibiotics as per recommendations of Infectious Disease inside solar sales consultant. Continue physical therapy. [facility] MD Philippe
[2017-04-01] MEDS: Albuterol-Ipratrop 3 mg / 0.5 (3 ml) UD INH SCH ×4 (01:00→19:41)
[2017-04-01] MEDS: cefTRIAXone 1 gm/NS 100ML IVPB SCH (08:06)
[2017-04-01] MEDS: Fluticasone-Salmeterol 250-50mcg Diskus IH SCH ×2 (08:07→21:17)
[2017-04-01] MEDS: Pantoprazole 40 mg EC Tab PO SCH (08:07)
[2017-04-01] MEDS: Lactobacillus Acidophilus 500 MU Cap PO SCH (08:08)
[2017-04-01] MEDS: Enoxaparin 30 mg Syringe SC SCH (08:08)
[2017-04-02] MEDS: Albuterol-Ipratrop 3 mg / 0.5 (3 ml) UD INH SCH ×4 (00:59→19:44)
[2017-04-02] MEDS: Pantoprazole 40 mg EC Tab PO SCH (08:42)
[2017-04-02] MEDS: Lactobacillus Acidophilus 500 MU Cap PO SCH (08:42)
[2017-04-02] MEDS: Fluticasone-Salmeterol 250-50mcg Diskus IH SCH ×3 (08:42→21:22)
[2017-04-02] MEDS: Enoxaparin 30 mg Syringe SC SCH ×2 (08:43→08:49)
[2017-04-02] MEDS: cefTRIAXone 1 gm/NS 100ML IVPB SCH (10:09)
[2017-04-02 17:53] VITALS: O2SAT 97
[2017-04-03] MEDS: Albuterol-Ipratrop 3 mg / 0.5 (3 ml) UD INH SCH ×2 (01:00→07:52)
[2017-04-03 07:59] VITALS: BP 122/68; PULSE 81; TEMP 97.5
[2017-04-03] MEDS: Pantoprazole 40 mg EC Tab PO SCH (09:06)
[2017-04-03] MEDS: Lactobacillus Acidophilus 500 MU Cap PO SCH (09:07)
[2017-04-03] MEDS: cefTRIAXone 1 gm/NS 100ML IVPB SCH (09:09)
[2017-04-03] MEDS: Fluticasone-Salmeterol 250-50mcg Diskus IH SCH (09:09)
--- NOTE | 2017-04-03 09:09 | PN ---
DATE: SUBJECTIVE: The patient is seen today on 04/02/2017. He is not in any cardiopulmonary distress and the patient's cough is improving. PHYSICAL EXAMINATION: VITAL SIGNS: Blood pressure is 128/70, temperature 97.7, respiratory rate 20 and pulse 80. HEENT: Pupils are equal and reactive to light. Normal-appearing mucosa of the conjunctivae, oropharyngeal and nasal membrane mucosa. NECK: Supple. No JVD. No carotid bruit. No lymph node. No thyromegaly. CHEST AND LUNGS: Bilateral symmetrical expansion. Good air exchange. No rales. No rhonchi. CARDIOVASCULAR SYSTEM: PMI not localized. S1, S2. No additional sounds. ABDOMEN: Normoactive bowel sounds. No tenderness. No organomegaly. No masses. EXTREMITIES: No cyanosis. No clubbing. No edema. CENTRAL VENOUS SYSTEM: Alert, awake and oriented x3. No neurological deficit could be appreciated. ASSESSMENT: 1. Status post sepsis secondary to bacteremia. 2. Duodenitis. 3. Bronchitis. 4. Benign prostate hypertrophy. PLAN: Continue current medications and the patient is for discharge tomorrow. The patient will continue physical therapy for deconditioning. Ankita Paez MD
== END 2017-04-03 11:15 | disposition home or self-care (01) | DRG 872 ==
LOC: H.TCU 17:42
PROVIDERS: ADMIT Internal Medicine; ATTEND Internal Medicine
PROC: F07Z9FZ Gait Training/Functional Ambulation Treatment using Assistive, Adaptive, Supportive or Protective Equipment (ICD-10-PCS; principal; 2017-03-24)
PROC: F07L6ZZ Therapeutic Exercise Treatment of Musculoskeletal System - Lower Back / Lower Extremity (ICD-10-PCS; 2017-03-24)
DX: A41.59 Other Gram-negative sepsis (principal); I12.9 Hypertensive chronic kidney disease with stage 1 through stage 4 chronic kidney disease, or unspecified chronic kidney disease; B35.1 Tinea unguium; K29.80 Duodenitis without bleeding; N40.0 Benign prostatic hyperplasia without lower urinary tract symptoms; N18.9 Chronic kidney disease, unspecified; Z87.891 Personal history of nicotine dependence; K76.9 Liver disease, unspecified